=== PATIENT | male | born 1980 | race African-American/Black ===

== ENCOUNTER 2017-01-25 20:38 | Emergency (ER) | payer OTHER ==
[2017-01-25 20:51] VITALS: BP 116/72; PULSE 86; TEMP 98.3; BMI 32.3
--- NOTE | 2017-01-25 21:35 | PDOC ---
History of Present Illness - General Chief Complaint: Pain Stated Complaint: PAIN-BACK OF THE HEAD Time Seen by Provider: 01/25/17 21:10 History Source: Patient Exam Limitations: No Limitations - History of Present Illness Initial Comments: 01/25/17 21:59 36-year-old male with a chronic history of left-sided occipital headache 2 years presents to the emergency department with the same complaint. Patient states he was seen earlier at [facility] emergency department and had a CT of his head without contrast. He was informed that his CAT scan is fine. Patient states he's had numerous CAT scans of his brain without contrast and numerous MRI/MRA of his head over the past 2 years and most recently within the last month. Patient is under the care of a neurologist. Patient denies nausea/vomiting, fever/chills, neck pains, blurry vision, visual disturbance, chest pain, shortness of breath, abdominal pains, extremity numbness or tingling sensation. He claims his pain has not gone any worse and in fact a little better this evening. He denies any dizziness, lightheadedness. Patient adamantly declines any further imaging. Patient states he would like a referral to another neurologist. Timing/Duration: other (2 years) Associated Symptoms: reports: denies symptoms Past History - Past Medical History Allergies/Adverse Reactions: Allergies Allergy/AdvReac Type Severity Reaction Status Date / Time No Known Allergies Allergy Verified 01/25/17 20:47 Home Medications: Ambulatory Orders Ibuprofen [Motrin -] 600 mg PO QID #30 tablet 06/07/16 GI Disorders: Yes (Diverticulitis) Suicide Attempt (Hx): No - Surgical History Cholecystectomy: Yes - Immunization History Immunization Up to Date: Yes - Psycho/Social/Smoking Cessation Hx Anxiety: No Suicidal Ideation: No Smoking History: Never smoked Have you smoked in the past 12 months: No Number of Cigarettes Smoked Daily: 2 Information on smoking cessation initiated: No Hx Alcohol Use: No Drug/Substance Use Hx: No Substance Use Type: Marijuana Hx Substance Use Treatment: No Review of Systems - Review of Systems Able to Perform ROS?: Yes Comments:: 01/25/17 21:33 CONSTITUTIONAL: Absent: fever, chills, diaphoresis, generalized weakness, malaise, loss of appetite HEENT: Absent: rhinorrhea, nasal congestion, throat pain, throat swelling, difficulty swallowing, mouth swelling, ear pain, eye pain, visual Changes CARDIOVASCULAR: Absent: chest pain, loss of consciousness, palpitations, irregular heart rate, peripheral edema RESPIRATORY: Absent: cough, shortness of breath, dyspnea with exertion, orthopnea, wheezing, stridor, hemoptysis GASTROINTESTINAL: Absent: abdominal pain, abdominal distension, nausea, vomiting, diarrhea, constipation, melena, hematochezia GENITOURINARY: Absent: dysuria, frequency, urgency, hesitancy, hematuria, flank pain, genital pain MUSCULOSKELETAL: Absent: myalgia, arthralgia, joint swelling SKIN: Absent: rash, itching, pallor HEMATOLOGIC/IMMUNOLOGIC: Absent: easy bleeding, easy bruising, lymphadenopathy, frequent infections ENDOCRINE: Absent: unexplained weight gain, unexplained weight loss, heat intolerance, cold intolerance NEUROLOGIC: +left occipital carter Absent: focal weakness or paresthesias, dizziness, unsteady gait, seizure, mental status changes, bladder or bowel incontinence PSYCHIATRIC: Absent: anxiety, depression, suicidal or homicidal ideation, hallucinations. Is the patient limited Bahamian proficient: No *Physical Exam - Vital Signs Last Vital Signs Temp Pulse Resp BP Pulse Ox 98.3 F 86 18 116/72 97 01/25/17 20:48 01/25/17 20:48 01/25/17 20:48 01/25/17 20:48 01/25/17 20:48 - Physical Exam Comments: 01/25/17 21:57 GENERAL: Well developed, well nourished. Awake and alert. No acute distress. HEENT: Normocephalic, atraumatic. PERRLA, EOMI. No conjunctival pallor. Sclera are non- icteric. Moist mucous membranes. Oropharynx is clear. NECK: Supple. Full ROM. No JVD. Carotid pulses 2+ and symmetric, without bruits. No thyromegaly. No lymphadenopathy. CARDIOVASCULAR: Regular rate and rhythm. No murmurs, rubs, or gallops. Distal pulses are 2+ and symmetric. PULMONARY: No evidence of respiratory distress. Lungs clear to auscultation bilaterally. No wheezing, rales or rhonchi. ABDOMINAL: Soft. Non-tender. Non-distended. No rebound or guarding. No organomegaly. Normoactive bowel sounds. MUSCULOSKELETAL Normal range of motion at all joints. No bony deformities or tenderness. No CVA tenderness. EXTREMITIES: No cyanosis. No clubbing. No edema. No calf tenderness. SKIN: Warm and dry. Normal capillary refill. No rashes. No jaundice. NEUROLOGICAL: Alert, awake, appropriate. Cranial nerves 2-12 intact. No deficits to light touch and temperature in face, upper extremities and lower extremities. No motor deficits in the in face, upper extremities and lower extremities. Normoreflexic in the upper and lower extremities. Normal speech. Toes are down- going bilaterally. Gait is normal without ataxia. JSYCHIATRIC: Cooperative. Good eye contact. Appropriate mood and affect. *DC/Admit/Observation/Transfer Diagnosis at time of Disposition: Chronic head pain - Discharge Dispostion Condition at time of disposition: Stable Admit: No - Referrals Referrals: Stephanie Barrett MD [Primary Care Provider] - Alexander Michael MD [Staff Physician] - - Patient Instructions Printed Discharge Instructions: DI for Headache Additional Instructions: Follow up with Dr. Michael/neurologist Return to the ER for severe/persistent/worsening symptoms
== END 2017-01-25 22:04 | disposition home or self-care (01) ==
LOC: JER 20:38
DX: R51 Headache (principal); G89.29 Other chronic pain
CPT/HCPCS: 99281-25

== ENCOUNTER 2017-02-20 16:36 | Emergency (ER) | payer OTHER ==
[2017-02-20 16:48] VITALS: BP 138/71; PULSE 64; TEMP 98.2; BMI 32.5
[2017-02-20] MEDS ORDERED: KETOROLAC TROMETHAMINE 60 MG/2 ML VIAL ONE (17:42)
[2017-02-20] MEDS ORDERED: KETOROLAC TROMETHAMINE 60 MG/2 ML VIAL IM ONE (17:47)
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
== END 2017-02-20 18:31 | disposition home or self-care (01) ==
LOC: JERFT 16:36
PROC: 3E0233Z Introduction of Anti-inflammatory into Muscle, Percutaneous Approach (ICD-10-PCS; principal; 2017-02-20)
DX: S29.012A Strain of muscle and tendon of back wall of thorax, initial encounter (principal); S93.431A Sprain of tibiofibular ligament of right ankle, initial encounter; S83.8X1A Sprain of other specified parts of right knee, initial encounter; V78.1XXA Passenger on bus injured in noncollision transport accident in nontraffic accident, initial encounter; Y93.89 Activity, other specified; Y92.414 Local residential or business street as the place of occurrence of the external cause
CPT/HCPCS: 99281-25

== ENCOUNTER 2017-06-21 11:41 | Emergency (ER) | payer OTHER ==
[2017-06-21 12:02] VITALS: BP 106/70; PULSE 68; TEMP 98; BMI 35.9
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
== END 2017-06-21 13:39 | disposition home or self-care (01) ==
LOC: JERFT 11:41
DX: M25.561 Pain in right knee (principal); G89.29 Other chronic pain
CPT/HCPCS: 99281-25

== ENCOUNTER 2017-09-14 17:17 | Emergency (ER) | payer OTHER ==
--- NOTE | 2017-09-14 17:34 | PDOC ---
Rapid Medical Evaluation Time Seen by Provider: 09/14/17 17:28 Medical Evaluation: Allergies Allergy/AdvReac Type Severity Reaction Status Date / Time No Known Allergies Allergy Verified 06/21/17 11:54 I have performed a brief in-person evaluation of this patient. The patient presents with a chief complaint of: right knee pain x 2 days. The patient states he was seen at [facility] 2 days ago and had a knee xray - result was broken knee cap. The patient saw his Ortho doc today who referred him for MRI next week. The patient was sent here for ? pain medication. He states [facility] sent him rx for oxycodone and ibuprofen but he has not been able to pick it up. Pertinent physical exam findings: Swelling and pain with palpation to right knee I have ordered the following: nothing The patient will proceed to the ED for further evaluation. Discharge Disposition - Diagnosis Right knee pain Qualifiers: Chronicity: acute Qualified Code(s): M25.561 - Pain in right knee - Referrals - Patient Instructions - Post Discharge Activity
[2017-09-14 17:35] VITALS: BP 115/85; PULSE 108; TEMP 98.3; BMI 31.5
[2017-09-14] MEDS ORDERED: KETOROLAC TROMETHAMINE 60 MG/2 ML VIAL IM ONE (19:53)
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
== END 2017-09-14 20:13 | disposition home or self-care (01) ==
LOC: JERFT 17:17
PROC: 2W3QX1Z Immobilization of Right Lower Leg using Splint (ICD-10-PCS; principal; 2017-09-14)
DX: S82.001A Unspecified fracture of right patella, initial encounter for closed fracture (principal); X58.XXXA Exposure to other specified factors, initial encounter; Y93.89 Activity, other specified; Y92.9 Unspecified place or not applicable
CPT/HCPCS: 29515; 99281-25

== ENCOUNTER 2017-09-29 05:48 | Day surgery (SDC) | payer OTHER ==
[2017-09-26 09:30] VITALS: BMI 30.2
[2017-09-29] MEDS ORDERED: MIDAZOLAM HCL 2 MG/2 ML SINGLE DOSE VIAL ONE ×3 (06:47→07:05)
[2017-09-29] MEDS ORDERED: BUPIVACAINE HCL/PF (5 MG/ML) 30 ML VIAL IJ ONE (06:47)
[2017-09-29] MEDS ORDERED: DEXAMETHASONE SOD PHOSPHATE/PF 10 MG/ML SDV ONE (06:47)
[2017-09-29] MEDS ORDERED: LIDOCAINE HCL 1%, 10 MG/ML (20ML VIAL) ONE (07:01)
[2017-09-29] MEDS ORDERED: BUPIVACAINE HCL/PF 0.5% (5MG/ML) 10 ML VIAL ONE (07:01)
[2017-09-29] MEDS ORDERED: DESFLURANE GAS 240 ML BOTTLE IH ONE (07:01)
[2017-09-29] MEDS ORDERED: SEVOFLURANE 250 ML BTL ONE (07:01)
[2017-09-29] MEDS ORDERED: ceFAZolin SODIUM 1 GM VIAL ONE (07:04)
[2017-09-29] MEDS ORDERED: PHENYLEPHRINE HCL 10 MG/1 ML SINGLE DOSE VIAL ONE (07:04)
[2017-09-29] MEDS ORDERED: ONDANSETRON 4 MG/2 ML VIAL ONE (07:04)
[2017-09-29] MEDS ORDERED: SUCCINYLCHOLINE CHLORIDE 200 MG/10 ML VIAL ONE (07:05)
[2017-09-29] MEDS ORDERED: ePHEDrine SULFATE 50 MG/1 ML AMPULE ONE (07:05)
[2017-09-29] MEDS ORDERED: PROPOFOL 20 ML ONE ×6 (07:05)
[2017-09-29] MEDS ORDERED: ROPIVACAINE HCL 0.5% 30ML VIAL ONE (07:13)
[2017-09-29] MEDS ORDERED: GUM MASTIC/STORAX/MSAL/ALCOHOL 1 DRP DROPSBTL MC ONE (10:43)
[2017-09-29] MEDS ORDERED: ONDANSETRON 4 MG/2 ML VIAL IVPUSH PRN (11:12)
[2017-09-29] MEDS ORDERED: oxyCODONE HCL 5 MG TABLET PO PRN (11:12)
[2017-09-29] MEDS ORDERED: PROMETHAZINE HCL 25 MG/1 ML VIAL IVPUSH PRN (11:12)
[2017-09-29] MEDS ORDERED: LACTATED RINGERS SOLUTION 1,000 ML IV SCH (11:15)
--- NOTE | 2017-09-29 11:32 | OP ---
Operative Note - Note: Operative Date: 09/29/17 Pre-Operative Diagnosis: right patella fracture Operation: right patella open reduction internal fixation Implants: accutrak micro x2 / synthes 2.0mm cortical screw x1 / segovia and nephew qfix anchor 1.8mm Post-Operative Diagnosis: Same as Pre-op Surgeon: Joaquin Alfaro Anesthesiologist/TRANSFORMATION COACH: Joe Marrero Anesthesia: Spinal, Fractional Operative Report Dictated: Yes
--- NOTE | 2017-09-29 12:16 | OP ---
DATE OF OPERATION: 09/29/2017 PREOPERATIVE DIAGNOSIS: Right patellar fracture. POSTOPERATIVE DIAGNOSIS: Right patellar fracture. PROCEDURE: Right patella open reduction internal fixation. SURGEON: Joaquin Alfaro MD ANESTHESIA: Regional plus spinal. POSTOPERATIVE CONDITION: Stable. COMPLICATIONS: None. IMPLANTS: Acutrak Micro screws x2 and 2-0-mm cortical screw from the [employer] tray x2 as well as a Q-Fix 1.8-mm anchor from [employer]. TOURNIQUET TIME: 76 minutes. POSTOPERATIVE CONDITION: Stable. INDICATIONS: This is a pleasant gentleman who had been suffering from patellar instability. He had an instability event and then suffered a fracture as a result. Given the displacement of this fracture, it was recommended for operative fixation. We discussed the option of nonoperative care with residual displacement of the fracture. We discussed the operative management with open reduction internal fixation. I reviewed operative risks in detail including bleeding, infection, neurovascular injury, need for further surgery, postoperative pain and stiffness, nonunion, malunion, hardware failure, or cutout. We discussed the possibility of posttraumatic arthrosis given that this was an intra-articular fracture. I addressed with the patient that this surgery would be to stabilize the fracture in the kneecap. This type of fracture often results in stiffness to the knee and may result in improvement of his instability to the knee. If this is not the case, he may require further surgery to correct his patellar instability. Given his knee valgus, it may be that distal femoral osteotomy is the most appropriate stabilization technique if she should require further procedures. We discussed medical risks such as heart attack, stroke, DVT, PE, and . I addressed all of the patient's questions. He voiced understanding and elected to proceed. DESCRIPTION OF PROCEDURE: The patient was brought to the operating room after administration of regional block in the preoperative holding area. The right lower extremity was then prepped and draped in the usual sterile fashion. A preoperative dose of antibiotics was given, and the usual time-out procedure was performed. The knee was examined demonstrating symmetric valgus to both sides. He had clearly increased lateral patellar translation versus the contralateral. At this point, incision was planned out medially over the patella. Incision was carried down through skin to subcutaneous tissue. Blunt spreading was used to expose the fascia over the patella. This was then split in line with its fibers. The soft tissue was now elevated sharply off the medial border of the patella at the fracture site. The fracture site was identified demonstrating a high degree of comminution. There was one major displaced fragment, which involved an osteoarticular surface although did not progress through to the dorsal aspect of the patella. This appeared to be more of a shear-type injury. The fracture fragments were then better defined utilizing a curette as well as rongeur, and any loose debris was removed. The main fragment was mobilized in order to provide better reduction and then was reduced and held in place with a K-wire. After considering treatment options, considering the large amount of articular surface on the fragment with minimal cortical shell, it was felt that fixation through the articular surface would be necessary. Utilizing the Acutrak system, 2 K-wires were inserted, and 2 screws were drilled and then inserted in a standard fashion bearing the headless screws well below the cartilage surface. In order to secure and then buttress the more medial aspect of the fracture, a 2-0 screw was drilled, countersunk, and then inserted fixating the more medial portion of the fracture. At this point, the entire fragment was quite stable. There were some surrounding fragments, which were too small for fixation in the approximate 3 mm size. These were sitting in near anatomic alignment just by the soft tissue attachments. The wound was copiously irrigated at this point. The tourniquet was left down. Any bleeding was identified and treated with electrocautery. In order to provide a superb capsular repair and help stabilize the patella better, a capsular repair was necessary. It should be noted that prior to starting this, fluoroscopy was used to confirm both fracture reduction and hardware placement. Both were satisfactory. The Q-Fix anchor was now drilled and inserted in the midportion of the medial patellar surface. The sutures were then passed through the retinaculum securing down the MPFL tissue to help stabilize the knee. Then 0 Vicryl sutures were used to repair the remaining capsule and retinaculum on the more inferior surface. More subcutaneous tissue was approximated using 2-0 Vicryl. The skin was closed using running 3-0 nylon. Sterile dressings were placed. The patient was placed into a well-padded cylinder-type cast. He was transferred to the recovery room in stable condition. Janeth FRAZIER/[id number]
[2017-09-29 16:31] VITALS: BP 116/70; PULSE 64; TEMP 97.7
== END 2017-09-29 16:37 | disposition home or self-care (01) ==
LOC: FASU 05:48
PROVIDERS: ATTEND Orthopaedic Surgery Sports Medicine
PROC: 0QSD04Z Reposition Right Patella with Internal Fixation Device, Open Approach (ICD-10-PCS; principal; 2017-09-29 08:40)
DX: S82.001A Unspecified fracture of right patella, initial encounter for closed fracture (principal); X58.XXXA Exposure to other specified factors, initial encounter; Y93.9 Activity, unspecified; Y92.9 Unspecified place or not applicable
CPT/HCPCS: 73560-TC-RT-FY; 76001-TC-FY; 97116-GP

== ENCOUNTER 2017-09-30 14:09 | Emergency (ER) | payer OTHER ==
--- NOTE | 2017-09-30 14:32 | PDOC ---
Rapid Medical Evaluation Time Seen by Provider: 09/30/17 14:29 Medical Evaluation: Allergies Allergy/AdvReac Type Severity Reaction Status Date / Time No Known Allergies Allergy Verified 09/30/17 14:29 I have performed a brief in-person evaluation of this patient. The patient presents with a chief complaint of: cast on left leg too tight Pertinent physical exam findings: none I have ordered the following: none; patient's surgical PA is coming to take cast off The patient will proceed to the ED for further evaluation.
[2017-09-30 14:33] VITALS: BP 128/67; PULSE 80; TEMP 98.6; BMI 30.2
--- NOTE | 2017-09-30 14:49 | CONSULT ---
- Consultation REQUESTING PROVIDER: CONSULT REQUEST: We have been asked to surgically evaluate this patient for right knee pain. PCP: HISTORY OF PRESENT ILLNESS: The patient is a 37 yo male who was referred to the ER for right knee pain by Dr. Alfaro his surgeon. He is s/p right patella open reduction and repair of fracture under regional/spinal. The patient states that he hasn't taken any pain medications since his operation. He denies any numbness or tingling to his foot. The pain is mostly throbbing and over his knee. He has scripts for pain meds, muscle relaxants and blood thinners at home. PSHx: right patella fracture repair 09/29/17 Home Medications Medication Instructions Recorded Ibuprofen 800 mg PO DAILY 09/26/17 Allergies Allergy/AdvReac Type Severity Reaction Status Date / Time No Known Allergies Allergy Verified 09/30/17 14:29 REVIEW OF SYSTEMS: NEUROLOGIC: Absent: paresthesias PHYSICAL EXAM: GENERAL: Awake, alert, and fully oriented, in no acute distress. MUSCULOSKELETAL: Normal ROM at all joints. No bony deformities or tenderness. No CVA tenderness. RLE: 2+ pulses, warm, well-perfused. sensation intact 5/5 dorsi/plantar flexion. The cast was bivalved using the oscillating cast saw. Webril was moved aside to view the inc which was c/d/i, xeroform was applied over the wound and an esthela wrap was applied the length of the cast. Vital Signs Temperature 98.6 F 09/30/17 14:30 Pulse Rate 80 09/30/17 14:30 Respiratory Rate 18 09/30/17 14:30 Blood Pressure 128/67 09/30/17 14:30 O2 Sat by Pulse Oximetry (%) 100 09/30/17 14:30 Problem List - Problems (1) Patellar fracture Assessment/Plan: Educated the patient on leg elevation above the heart level, Ice as needed and keep the cast dry. Use your pain medications as prescribed and start you blood thinners, aspirin 81 mg bid x 4 weeks f/u with Dr. Alfaro in 10 days D/w with Dr. Alfaro Code(s): S82.009A - UNSP FRACTURE OF UNSP PATELLA, INIT FOR CLOS FX Qualifiers: Encounter type: initial encounter Fracture type: closed Fracture morphology: unspecified fracture morphology Fracture alignment: nondisplaced Laterality: right Qualified Code(s): S82.001A - Unspecified fracture of right patella, initial encounter for closed fracture Visit type - Case Type Case Type: ED Admission - Emergency Emergency Visit: No - New patient This patient is new to me today: Yes Date on this admission: 09/30/17
--- NOTE | 2017-09-30 15:22 | PDOC ---
Suture Removal/Wound Check HPI - History of Present Illness Chief Complaint: Pain Stated Complaint: RIGHT KNEE PAIN Time Seen by Provider: 09/30/17 14:29 History Source: Yes: Patient Exam Limitations: Yes: No Limitations Past History - Past Medical History Allergies/Adverse Reactions: Allergies Allergy/AdvReac Type Severity Reaction Status Date / Time No Known Allergies Allergy Verified 09/30/17 14:29 Anemia: No Asthma: No Cancer: No Cardiac Disorders: No CVA: No COPD: No CHF: No DVT: No Dementia: No Diabetes: No GI Disorders: Yes (Diverticulitis) Disorders: No HTN: No Hypercholesterolemia: No Liver Disease: No Seizures: No Thyroid Disease: No Other medical history: knee surgery by - Surgical History Abdominal Surgery: Yes Appendectomy: No Cardiac Surgery: No Cholecystectomy: Yes Lung Surgery: No Neurologic Surgery: No Orthopedic Surgery: No - Immunization History Immunization Up to Date: Yes - Suicide/Smoking/Psychosocial Hx Smoking History: Never smoked Have you smoked in the past 12 months: No Number of Cigarettes Smoked Daily: 2 Information on smoking cessation initiated: No Hx Alcohol Use: No Drug/Substance Use Hx: No Substance Use Type: None, Marijuana Hx Substance Use Treatment: No Suture Removal/Wound Check PE - Physical Exam Laceration/Wound Check Symptoms: reports: Pain Comments: 09/30/17 15:18 right knee with cast in place here to see Arpita HALE for cast check in the ER Location of Laceration/Wound: right: Knee *Review of Systems - Review of Systems Able to Perform ROS?: Yes Constitutional: No: Symptoms Reported HEENTM: No: Symptoms Reported Respiratory: No: Symptoms reported Cardiac (ROS): No: Symptoms Reported ABD/GI: No: Symptoms Reported : No: Symptoms Reported Musculoskeletal: Yes: Symptoms Reported Medical Decision Making - Medical Decision Making 09/30/17 15:19 cc: right leg cast in place s/p patella repair here to see the orthopedist for a cast check *DC/Admit/Observation/Transfer Diagnosis at time of Disposition: Sprain of right knee Qualifiers: Encounter type: initial encounter Involved ligament of knee: other ligament Qualified Code(s): S83.8X1A - Sprain of other specified parts of right knee, initial encounter - Discharge Dispostion Disposition: HOME Condition at time of disposition: Good - Referrals - Patient Instructions Additional Instructions: follow with the orthopedist as discussed in 10 days elevate and apply ice do not get the cast wet - Post Discharge Activity
== END 2017-09-30 15:48 | disposition home or self-care (01) ==
LOC: JERFT 14:09
PROC: 2W5MX2Z Removal of Cast on Left Lower Extremity (ICD-10-PCS; principal; 2017-09-30)
PROC: 2W3LX2Z Immobilization of Right Lower Extremity using Cast (ICD-10-PCS; 2017-09-30)
DX: S82.091D Other fracture of right patella, subsequent encounter for closed fracture with routine healing (principal); X58.XXXD Exposure to other specified factors, subsequent encounter
CPT/HCPCS: 29345; 29705; 99281-25

== ENCOUNTER 2018-02-10 16:20 | Emergency (ER) | payer OTHER ==
--- NOTE | 2018-02-10 16:35 | PDOC ---
Rapid Medical Evaluation Time Seen by Provider: 02/10/18 16:33 Medical Evaluation: Allergies Allergy/AdvReac Type Severity Reaction Status Date / Time latex Allergy Rash Verified 02/10/18 16:32 02/10/18 16:33 have performed a brief in-person evaluation of this patient. The patient presents with a chief complaint of: R ear oain and otorrhea x 4 days Pertinent physical exam findings:defer to FT provider I have ordered the following:none The patient will proceed to the ED for further evaluation Discharge Disposition - Diagnosis Ear pain, right - Referrals - Patient Instructions - Post Discharge Activity
[2018-02-10 16:36] VITALS: BP 140/90; PULSE 98; TEMP 98.2; BMI 29.7
--- NOTE | 2018-02-10 16:58 | PDOC ---
History of Present Illness - General Chief Complaint: Ear Problem Stated Complaint: EAR PAIN Time Seen by Provider: 02/10/18 16:33 History Source: Patient Exam Limitations: No Limitations - History of Present Illness Initial Comments: 02/10/18 17:26 c/o right ear fullness, clogged feeling. pt denies trauma. pt denies fever or any recent URI symptoms. Pt concerned about a bug being in the ear. Timing/Duration: other (2 days) Severity: mild Past History - Past Medical History Allergies/Adverse Reactions: Allergies Allergy/AdvReac Type Severity Reaction Status Date / Time latex Allergy Rash Verified 02/10/18 16:32 Home Medications: Ambulatory Orders NK [No Known Home Medication] 02/10/18 Anemia: No Asthma: No Cancer: No Cardiac Disorders: No CVA: No COPD: No CHF: No DVT: No Dementia: No Diabetes: No GI Disorders: Yes (Diverticulitis) Disorders: No HTN: No Hypercholesterolemia: No Liver Disease: No Seizures: No Thyroid Disease: No - Surgical History Abdominal Surgery: Yes Appendectomy: No Cardiac Surgery: No Cholecystectomy: Yes Lung Surgery: No Neurologic Surgery: No Orthopedic Surgery: No - Immunization History Immunization Up to Date: Yes - Suicide/Smoking/Psychosocial Hx Smoking History: Former smoker Have you smoked in the past 12 months: No Number of Cigarettes Smoked Daily: 2 Information on smoking cessation initiated: No Hx Alcohol Use: No Drug/Substance Use Hx: No Substance Use Type: None, Marijuana Hx Substance Use Treatment: No Review of Systems - Review of Systems Able to Perform ROS?: Yes Is the patient limited Cymro proficient: No Constitutional: No: Symptoms Reported *Physical Exam - Vital Signs Last Vital Signs Temp Pulse Resp BP Pulse Ox 98.2 F 98 H 19 140/90 97 02/10/18 16:32 02/10/18 16:32 02/10/18 16:32 02/10/18 16:32 02/10/18 16:32 - Physical Exam General Appearance: Yes: Nourished, Appropriately Dressed HEENT: positive: EOMI, CHECO, TMs Normal Neck: positive: Supple. negative: Tender Respiratory/Chest: positive: Lungs Clear, Normal Breath Sounds. 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 NML intact, Fully Oriented, Alert, Normal Mood/ Affect Medical Decision Making - Medical Decision Making 02/10/18 17:31 cc: right ear clogged sensation no drainage no recent URI symptoms ear is clear no evidence of infection or foreign body *DC/Admit/Observation/Transfer Diagnosis at time of Disposition: Ear pain, right - Discharge Dispostion Disposition: HOME Condition at time of disposition: Good - Referrals Referrals: Tono Costello MD [Primary Care Provider] - Anthony Gonzalez MD [Staff Physician] - - Patient Instructions Additional Instructions: please follow with the ENT doctor tuesday if your symptoms continue you have no sign of infection or foreign body in the ear today if symptoms change or worsen you can return to ER do not put anything in the ear and keep water out of ear during showering - Post Discharge Activity
--- NOTE | 2018-02-10 17:10 | PDOC ---
History of Present Illness - General Chief Complaint: Ear Problem Stated Complaint: EAR PAIN Time Seen by Provider: 02/10/18 16:33 History Source: Patient Exam Limitations: No Limitations Past History - Past Medical History Allergies/Adverse Reactions: Allergies Allergy/AdvReac Type Severity Reaction Status Date / Time latex Allergy Rash Verified 02/10/18 16:32 Home Medications: Ambulatory Orders Unobtainable 09/30/17 Anemia: No Asthma: No Cancer: No Cardiac Disorders: No CVA: No COPD: No CHF: No DVT: No Dementia: No Diabetes: No GI Disorders: Yes (Diverticulitis) Disorders: No HTN: No Hypercholesterolemia: No Liver Disease: No Seizures: No Thyroid Disease: No - Surgical History Abdominal Surgery: Yes Appendectomy: No Cardiac Surgery: No Cholecystectomy: Yes Lung Surgery: No Neurologic Surgery: No Orthopedic Surgery: No - Immunization History Immunization Up to Date: Yes - Suicide/Smoking/Psychosocial Hx Smoking History: Former smoker Have you smoked in the past 12 months: No Number of Cigarettes Smoked Daily: 2 Information on smoking cessation initiated: No Hx Alcohol Use: No Drug/Substance Use Hx: No Substance Use Type: None, Marijuana Hx Substance Use Treatment: No *Physical Exam - Vital Signs Last Vital Signs Temp Pulse Resp BP Pulse Ox 98.2 F 98 H 19 140/90 97 02/10/18 16:32 02/10/18 16:32 02/10/18 16:32 02/10/18 16:32 02/10/18 16:32 *DC/Admit/Observation/Transfer Diagnosis at time of Disposition: Ear pain, right - Referrals Referrals: Tono Costello MD [Primary Care Provider] - - Patient Instructions - Post Discharge Activity
== END 2018-02-10 17:35 | disposition home or self-care (01) ==
LOC: JERFT 16:20
DX: H92.01 Otalgia, right ear (principal)
CPT/HCPCS: 99281-25

== ENCOUNTER 2019-01-25 14:52 | Emergency (ER) | payer OTHER | END 2019-01-25 17:30 | disposition home or self-care (01) | LOC: JER 14:52 ==

== ENCOUNTER 2019-02-03 12:05 | Emergency (ER) | payer OTHER | END 2019-02-03 14:35 | disposition home or self-care (01) | LOC: JER 12:05 ==

== ENCOUNTER 2019-09-13 17:58 | Emergency (ER) | payer OTHER ==
--- NOTE | 2019-09-13 18:15 | PDOC ---
Rapid Medical Evaluation Time Seen by Provider: 09/13/19 18:11 Medical Evaluation: Allergies Allergy/AdvReac Type Severity Reaction Status Date / Time latex Allergy Rash Verified 02/20/18 14:31 09/13/19 18:13 CC: left middle finger pain PE: swelling to cuticle of left middle finger. + pus present. Orders: xray Patient will proceed to ED for further evaluation. Discharge Disposition - Diagnosis Paronychia - Referrals - Patient Instructions - Post Discharge Activity
[2019-09-13 18:16] VITALS: BP 114/87; PULSE 97; TEMP 98.2; BMI 32.5
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
[2019-09-13] MEDS ORDERED: IBUPROFEN 600 MG TABLET (FP) PO ONE ×2 (19:38→19:48)
== END 2019-09-13 19:53 | disposition home or self-care (01) ==
LOC: JERFT 17:58
PROC: 0J9K0ZZ Drainage of Left Hand Subcutaneous Tissue and Fascia, Open Approach (ICD-10-PCS; principal; 2019-09-13)
DX: L03.012 Cellulitis of left finger (principal)
CPT/HCPCS: 99281-25

== ENCOUNTER 2020-03-20 21:40 | Emergency (ER) | payer OTHER ==
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
[2020-03-20 21:53] VITALS: BP 129/85; PULSE 88; TEMP 99.1; BMI 28.0
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
== END 2020-03-20 22:55 | disposition home or self-care (01) ==
LOC: JER 21:40
DX: S82.892A Other fracture of left lower leg, initial encounter for closed fracture (principal)
CPT/HCPCS: 73610-TC-LT-FY; 99283-25

== ENCOUNTER 2020-05-13 22:34 | Emergency (ER) | payer OTHER ==
[2020-05-13 23:00] VITALS: TEMP 98.2; BMI 34.0
--- OUTSIDE RECORDS SUMMARY | 2020-05-13 23:05 | XMS ---
:1980 Author Organization [facility] Care Team Providers Name Role Phone GILDA BARNETT Unavailable Unavailable GARRATON, LYNN, LYNN Unavailable Unavailable Mutua, Mwia Faith Unavailable [phone] Mutua, Ford Unavailable [phone] MARIANELA BECERRA Unavailable Unavailable Osredkar Unavailable [phone] Ta Unavailable MILES SHAH Unavailable MILES SHAH Unavailable MILES SHAH Unavailable MILES SHAH Unavailable MILES SHAH Unavailable OYEKOLA KNOBBER Unavailable OYEKOLA KNOBBER Unavailable OYEKOLA KNOBBER Unavailable OYEKOLA KNOBBER Unavailable Sharlene Guadarrama MD Unavailable Unavailable Sharlene Guadarrama MD Unavailable Unavailable Sharlene Guadarrama MD Unavailable Unavailable Sharlene Guadarrama MD Unavailable Unavailable Sharlene Guadarrama MD Unavailable Unavailable Sharlene Guadarrama MD Unavailable Unavailable Go, R MD Unavailable Unavailable Mukesh Unavailable [phone] AGYEPONG KNOBBER Unavailable AGYEPONG KNOBBER Unavailable Go, R MD Unavailable Unavailable Go, R MD Unavailable Unavailable Go, R MD Unavailable Unavailable Go, R MD Unavailable Unavailable Go, R MD Unavailable Unavailable Go, R MD Unavailable Unavailable Go, R Unavailable Unavailable Nicola SHAH Unavailable Unavailable Nicola SHAH Unavailable Unavailable Nicola SHAH Unavailable Unavailable Hanson Unavailable Unavailable Hanson Unavailable Unavailable Hanson Unavailable Unavailable Hanson Unavailable Unavailable Hanson Unavailable Unavailable LEFKOVITZ, MACIEJ Unavailable Unavailable Luke Unavailable [phone] Luke Unavailable [phone] MD Aldo Unavailable Unavailable Lakhi Unavailable [phone] Lakhi Unavailable [phone] Lakhi Unavailable [phone] SHANE DDS Unavailable Aszalos, Shahnaz Unavailable Unavailable Aszalos, Shahnaz Unavailable Unavailable Aszalos, Shahnaz Unavailable Unavailable Aszalos, Shahnaz Unavailable Unavailable Aszalos, Shahnaz Unavailable Unavailable Aszalos, Shahnaz Unavailable Unavailable Aszalos, Shahnaz Unavailable Unavailable Aszalos, Shahnaz Unavailable Unavailable Aszalos, Shahnaz Unavailable Unavailable LEIDY LOMAX Unavailable Unavailable RAVANMEHR Unavailable RAVANMEHR Unavailable Garza Unavailable Héctor Unavailable [phone] MD Biju Unavailable Unavailable MD Biju Unavailable Unavailable MD Biju Unavailable Unavailable MD Biju Unavailable Unavailable MD Biju Unavailable Unavailable NIKIA MATTHEWS Unavailable Unavailable MD AKIL Unavailable MD AKIL Unavailable MD AKIL Unavailable Magalys SHAH Unavailable Unavailable RENEE KNOBBER Unavailable RENEE KNOBBER Unavailable JOSE D ABREU Unavailable Unavailable Rehana Unavailable [phone] Rehana Unavailable [phone] Rehana Unavailable [phone] Rehana Unavailable [phone] Rehana Unavailable [phone] Rehana Unavailable [phone] FERNIE CANDELARIA Unavailable Unavailable BRENDA CARBAJAL Unavailable Unavailable THOMAS LOMAX Unavailable Ruperto Unavailable [phone] EMERGENCY SERVICE, X Unavailable Unavailable GLADYS DPM Unavailable GLADYS DPM Unavailable Jon Unavailable Unavailable Jon Unavailable Unavailable SHAHZA DENT HY Unavailable Re-disclosure Warning The records that you are about to access may contain information from federally- assisted alcohol or drug abuse programs. If such information is present, then the following federally mandated warning applies: This information has been disclosed to you from records protected by federal confidentiality rules (42 CFR part 2). The federal rules prohibit you from making any further disclosure of this information unless further disclosure is expressly permitted by the written consent of the person to whom it pertains or as otherwise permitted by 42 CFR part 2. A general authorization for the release of medical or other information is NOT sufficient for this purpose. The Federal rules restrict any use of the information to criminally investigate or prosecute any alcohol or drug abuse patient.The records that you are about to access may contain highly sensitive health information, the redisclosure of which is protected by Article 27-F of the [facility] Public Health law. If you continue you may haveaccess to information: Regarding HIV / AIDS; Provided by facilities licensed or operated by the [facility] Office of Mental Health; or Provided by the [facility] Office for People With Developmental Disabilities. If such information is present, then the following [facility] mandated warning applies: This information has been disclosed to you from confidential records which are protected by state law. State law prohibits you from making any further disclosure of this information without the specific written consent of the person to whom it pertains, or as otherwise permitted by law. Any unauthorized further disclosure in violation of state law may result in a fine or nursing home sentence or both. A general authorization for the release of medical or other information is NOT sufficient authorization for further disclosure. Allergies and Adverse Reactions Type Description Substance Reaction Status Data Source(s ) Environmental latex latex [facility] Corpor[facility] on Drug allergy latex latex [facility] Corpor[facility] on Miscellaneous latex latex UNKNOWN [facility] Allergy to Active Latex Skin Rashes, Active VIBHA (Mo unt substance [facility]) Allergy to Active Latex Skin Rashes, Active VIBHA (Mo unt substance [facility]) Allergy to Active Latex Skin Rashes, Active VIBHA (Mo unt substance [facility]) Allergy to Active Latex Skin Rashes, Active VIBHA (Mo unt substance [facility]) Allergy to Active Latex Skin Rashes, Active VIBHA (Mo unt substance [facility]) Allergy to Active Latex Skin Rashes, Active VIBHA (Mo unt substance [facility]) Allergy to Active Latex Skin Rashes, Active VIBHA (Mo unt substance [facility]) Allergy to Active Latex Skin Rashes, Active VIBHA (Mo unt substance [facility]) Drug allergy No Known Drug No Known Drug [facility] Allergies Allergies Medical Center Propensity to Propensity to Propensity to NEXTG EN ([facility] adverse reactions adverse adverse [facility] (disorder) reactions reactions Center) (disorder) (disorder) Family History Family Member Family Member Family Member Date of Description Data Source(s) Name Gender Status Status Unknown Male Diagnosis 09/16/2014 NEXTGEN ([facility] 12:00:00 AM [facility] al EST [place]) Encounters Encounter Providers Location Date Indications Data Source(s ) Emergency Attender: BARTOLO 05/06/2020 PAIN LEFT OPAL [facility] 08[facility]00 PM [facility] EMERGENCY EDT Corporation SERVICE, XAdmitter: LEIDY LOMAX PAIN LEFT OPAL RASH Outpatient Attender: BYRON 04/03/2020 11:56:00 [facility]V [facility] NIKIAAttender: MANGION, AM EDT [facility] Care JEREMYAdmitter: Cecilia MATTHEWS Emergency Attender: LYNN 03/27/2020 CAST REMOVAL [facility], 09:55:00 AM EDT Health Ca re TEENAAttender: Corporatio n EMERGENCY SERVICE, XAdmitter: LYNN DRIVER CAST REMOVAL Emergency Attender: Benjamin 03/24/2020 08:59:00 BROKEN ANK LE [facility] Biju MDAttender: PM EDT [facility] EMERGENCY SERVICE, Corpor ation XAdmitter: Benjamin Ivy MDReferrer: EMERGENCY SERVICE, X BROKEN ANKLE Outpatient Attender: LOIS, 02/21/2020 08:43:00 [facility] VERONICAEMYAdmitter: LOIS, AM EDT [facility] Care JOSE D Negotiant Outpatient Attender: BYRON, 02/11/2020 10:02:00 S82.842 [facility] NIKIAAdmitter: ASPRINIO, AM [facility] DAVIDReferrer: ASPRINSchool Yourself NIIKA [id number] Outpatient Attender: BYRON, 02/11/2020 06:00:00 S82.842 [facility] NIKIAAdmitter: ASPMATT, AM [facility] DAVIDReferrer: [facility] NIKIA [id number] Outpatient Attender: BYRON 02/08/2020 [id number] [facility] NIKIAAdmitter: 10:06:00 AM EDT [id number] [facility] JOANNEHOLLAND HOSPITALSchool Yourself DAVIDReferrer: NIKIA MATTHEWS [id number] Outpatient Attender: BYRON, 02/08/2020 06:00:00 S82.842 [facility] NIKIAAdmitter: ASPMATT, AM [facility] NIKIAReferrer: FoxGuard SolutionsHOLLAND HOSPITALSchool Yourself NIKIA [id number] Outpatient Attender: BYRON, 02/04/2020 04:05:00 [id number] [facility] NIKIAAdmitter: PM EDT Health NUHA Montagueeferrer: NIKIA De La Rosa [id number] Emergency Attender: ERICKA, 03/28/2019 12:24:00 PAIN [facility] GILDAAdmitter: PM EDT Health GILDA 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[employer] PAIN Outpatient<td Attender: Dustin 03/27/2019 ObesityAbdominal MARYCARMEN LAURA ID="encounterTypeDescriptionID0">[place]</td><td>[facility] 12:15:00 PM PainHyperlipidemiaHydrarthrosis ([facility] KNOBBER</td><td>[facility] EDT - - Knee / Patella / Tibia / Neighborhood Center</td><td>03/27/2019</td><td><content [facility] Center 01/2019 [facility] ID="encounterDiagnosisID0-0">Hyperlipidemia</content>, 01:17:10 PM Center) <content ID="encounterDiagnosisID0-1">Abdominal EDT Pain</content>, <content ID="encounterDiagnosisID0-2">Obesity</content>, <content ID="encounterDiagnosisID0-3">Hydrarthrosis - Knee / Patella / Tibia / Fibula</content></td> Obesity Abdominal Pain Hyperlipidemia Hydrarthrosis - Knee / Patella / Tibia / Fibula Emergency H 03/25/2019 [facility] 06:09:00 PM Medical EDT Center Outpatient Attender: Dustin 03/23/2019 [place] <td [facility] 06:04:00 PM (Vijay Alonzo ID="[facility] EDT - [facility] 03/23/2019 Health criptionID 11:59:00 PM Center) 1">*OUTREA EDT CH*</td><t d>[facility]</td><t d>[facility]</td ><td>03/23</td> <td></td> Outpatient Attender: Dustin 03/21/2019 ObesityNeuropathyRoutine [place] <td [facility] 10:30:00 AM ExaminationObesityNeurop athyRout (Vijay Alonzo ID="[facility] EDT - [facility] 03/21/2019 ExaminationObesityNeuropa thyRout Health criptionID 11:50:43 AM [facility] Examination Center) 2">OFFICE EDT VISIT</td> <td>[facility]</td><t d>[facility]</td ><td>03/21</td> <td><say nt ID="encoun terDiagnos isID2-0">R outine Examinatio n</content >, <content ID="encoun terDiagnos isID2-1">N europathy< /content>, <content ID="encoun terDiagnos isID2-2">O besity</co ntent></td > Obesity Neuropathy Routine Examination Obesity Neuropathy Routine Examination Obesity Neuropathy Routine Examination Outpatient<td Attender: Dustin 03/05/2019 VIBHA ID="encounterTypeDescriptionID3">PATIENT [facility] 01:16: 00 PM ([place] [facility]</td><td>[facility] EDT - Ne [facility]</td><td>[facility] 2018 Health Center</td><td>03/05/2019</td><td></td> 11:59:0 0 PM Center) EDT Outpatient<td Attender: Dustin 02/23/2019 A VIBHA ID="encounterTypeDescriptionID4">WALKINS< [facility] 01:15 :00 PM b ([place] /td><td>[facility] EDT - d Ne [facility]</td><td>[facility] 02/23/2019 o Health Center</td><td>02/23/2019</td><td><[place]ten 02:04 :54 PM Center) t ID="encounterDiagnosisID4-0">Penis EDT i Disorders</content>, <content n ID="encounterDiagnosisID4-1">Abdominal a Pain</content>, <content l ID="encounterDiagnosisID4-2">Obesity</con P tent></td> a i n P e n i s D i s o r d e r s A b d o m i n a l P a i n P e n i s D i s o r d e r s A b d o m i n a l P a i n P e n i s D i s o r d e r s A b d o m i n a l P a i n P e n i s D i s o r d e r s A b d o m i n a l P a i n P e n i s D i s o r d e r s O b e s i t y O b e s i t y O b e s i t y O b e s i t y O b e s i t y Abdominal Pain Penis Disorders Abdominal Pain Penis Disorders Abdominal Pain Penis Disorders Abdominal Pain Penis Disorders Abdominal Pain Penis Disorders Obesity Obesity Obesity Obesity Obesity Outpatient<td Attender: Dustin 02/14/2019 VIBHA ID="encounterTypeDescriptionID5">*OUTREACH*</td><td>MELISSA [facility] 04:45:00 PM ([facility]</td><td>[facility]</td><td>02/14/2019</td><td></td> KNOBBER Center [address] [place] [address] 11:59:00 PM Center) EDT Outpatient 02/05/2019 [facility] 11:22:00 AM Medical EDT Center Outpatient Attender: 02/05/2019 [facility] Leon Guadarrama 09:33:00 AM Medical [facility] EDT Center : Leon Guadarrama MDReferrer : Leon Guadarrama MD OutpatientOFFICE/OUTPATIENT VISIT, EST Attender: General 02/06/20 19 KATHIA Guadarrama MD Surgery 09:33:00 AM ([facility] 02/05/2019 Medical 09:33:00 AM Center) EDT Outpatient 02/05/2019 [facility] 12:00:00 AM Medical EDT Center Emergency Attender: 02/04/2019 Arin BECERRA, 07:36:00 AM [facility] EDT S Care ter: Kayla Motley L E A N D S T O M A C H P A I N TESTICLE AND STOMACH PAIN Outpatient<td Attender: Dustin 01/30/2019 [place] ID="encounterTypeDescriptionID6">PATIENT [facility] 11:31: 00 AM ([place] [facility]</td><td>[facility] EDT - [facility]</td><td>[facility] 2018 Health Center</td><td>01/30/2019</td><td></td> 11:59:0 0 PM Center) EDT Outpatient<td Attender: Dustin 01/25/2019 A [place] ID="encounterTypeDescriptionID7">[facility] b (Vijay Alonzo /td><td>[facility] EDT - d [facility] K[facility]BBER</td><td>[facility] KNOBBER Center 01/25/2019 o Health Center</td><td>01/25/2019</td><td><conten 12:50 :53 PM [facility]) t ID="encounterDiagnosisID7-0">Abdominal EDT i Pain</content></td> n a l P a i n A b d o m i n a l P a i n A b d o m i n a l P a i n A b d o m i n a l P a i n A b d o m i n a l P a i n A b d o m i n a l P a i n A b d o m i n a l P a i n A b d o m i n a l P a i n Abdominal Pain Abdominal Pain Abdominal Pain Abdominal Pain Abdominal Pain Abdominal Pain Abdominal Pain Abdominal Pain Outpatient<td Attender: Dustin 01/25/2019 [place] ID="encounterTypeDescriptionID8">PATIENT [facility] 11:34: 00 AM ([place] [facility]</td><td>[facility] EDT - Ne [facility]</td><td>[facility] 2018 Health Center</td><td>01/25/2019</td><td></td> 11:59:0 0 PM Center) EDT Outpatient Attender: 01/23/2019 Disha CANDELARIA, 06:00:00 AM [facility] Care er: Cecilia CANDELARIA Emergency Attender: 01/19/2019 Karen LOMAX, 12:08:00 PM [facility] EDT O Care ter: Manny Menendez P A I N STOMACH PAIN Emergency Attender: RAVEN, 12/18/2018 [facility]AV[facility], 07:07:00 PM EDT [facility] PAIN IN STAB WOUNDS Outpatient<td Attender: Dustin 05/05/2018 [place] ID="encounterTypeDescriptionID9">*OUTREACH*</td><td>[facility] 04:30:00 PM ([facility]</td><td>[facility] DT - [facility] Center</td><td>05/05/2018</td><td></td> KNOBBER Center [facility] Health 11:59:00 PM Center) EDT Outpatient<td ID="[id number]">*No Attender: Dustin 05/02/2018 [place] Show*</td><td>Boogie Garza</td><td>[facility] 03:06:00 PM ([facility]</td><td>05/02/2018</td><td></td> [facility] EDT - Neighborhood Center 05/02/2018 Health 11:59:00 PM Center) EDT Outpatient<td ID="[id number]">PATIENT Attender : Dustin 04/20/2018 [facility]</td><td>Stephanie Ta</td><td>[facility] 03:48:00 PM ([facility]</td><td>04/20/2018</td><td></td> [facility] EDT - Neighborhood Center 04/20/2018 Health 11:59:00 PM Center) EDT Outpatient<td Attender: Dustin 04/20/2018 [place] ID="[id number]">WALKINS</td><td>[facility] 12:15:00 PM ([facility]</td><td>[facility] EDT - [facility]</td><td>04/20/2018</td><td></td> rt Center [address] [place] [address] 03:35:05 PM Center) EDT Emergency Attender: 04/19/2018 Julito Jaimes Hardik 09:18:00 AM Karen Carlson MD EDT - E 04/19/2018 E 10:51:00 AM I EDT N J U R Y A U T O KNEE INJURY AUTO Outpatient<td Attender: Dustin 04/04/2018 [place] ID="[id number]">[facility] 10: 00:00 AM (Vijay Alonzo INITIAL VISIT</td><td[facility]</td><td>[facility] 04/04/20 18 Health Center</td><td>04/04/2018</td><td></td> 12:01:4 7 PM Center) EDT Outpatient<td Attender: Dustin 03/30/2018 [facility] ID="[id number]">[place]ALKINS</t [facility] 04 :15:00 PM y (Vijay Alonzo d><td>[facility]</td><td>[facility] EDT [facility] KNOBBER Center 03/30/2018 e Health Center</td><td>03/30/2018</td><td><content 04:5 5:20 PM r Center) ID="yimsfqotoYhhrsqqyyPM32-4">Hyperlipidemia ED T l </content></td> i p i d e m i a H y p e r l i p i d e m i a H y p e r l i p i d e m i a H y p e r l i p i d e m i a H y p e r l i p i d e m i a H y p e r l i p i d e m i a H y p e r l i p i d e m i a H y p e r l i p i d e m i a Hyperlipidemia Hyperlipidemia Hyperlipidemia Hyperlipidemia Hyperlipidemia Hyperlipidemia Hyperlipidemia Hyperlipidemia Outpatient<td Attender: Dustin 03/30/2018 VIBHA ID="[id number]">PATIENT [facility] 12:24 :00 PM (Vijay Alonzo ADVOCACY</td><td>[facility] EDT - [facility]</td><td>[facility] 2017 Health Center</td><td>03/30/2018</td><td></td> 11:59:0 0 PM Center) EDT Outpatient<td Attender: Dustin 03/27/2018 VIBHA ID="[id number]">[facility] 04:4 3:00 PM (Vijay Alonzo H*</td><td>[facility] EDT - [facility] KNOBBER</td><[facility]</td><td>03/27/2018</td><td></td> 11:59:0 0 PM Center) EDT Outpatient<td Attender: Dustin 03/24/2018 A VIBHA ID="[id number]">COMPLETE [facility] 10:0 0:00 AM b (Vijay Alonzo PHYSICAL EXAM</td><td>[facility] EDT - d [facility] KNOBBER</td><td>[facility] KNOBBER Center 03/24/2018 o Health Center</td><td>03/24/2018</td><td><content 12:0 0:15 PM Center) ID="fecttpkvbVrgxpztfcVS63-5">Questionnair EDT i es Phq-9 Quick Depression Assessment n Panel</content>, <content a ID="ejljhdscaMixvgqlkpMY25-3">Preventive l Med Standardized Depression Screening: P Positive For Symptoms</content>, <content a ID="gkllhciurPfmtmufkuTQ10-2">Depression</ i content>, <content n ID="diquqzurvRvmmjhusmOH03-5">Arthralgia - D Knee / Patella / Tibia / Fibula</content>, e <content r ID="widecufwdKbzpibwdrME15-6">Routine m History and Physical</content>, <content a ID="thomqkqctQqisurqrrZP57-1">Hearing t Loss</content>, <content o ID="vkceiktciPizagclzgLP72-2">Hypertrophic l Skin Condition</content>, <content o ID="ilcwzscqrBrjmxjgfmKZ72-5">Obesity</con g tent>, <content y ID="ywgvepfiiNishbyizyJA10-6">Dermatology N Non-infectious Nails</content>, <content o ID="zwtajfdqjUhstnujvwXM07-4">Abdominal n Pain</content></td> - i n f e c t i o u s N a i l s O b e s i t y H y p e r t r o p h i c S k i n C o n d i t i o n H e a r i n g L o s s R o u t i n e H i s t o r y a n d P h y s i c a l A r t h r a l g i a - K n e e / P a t e l l a / T i b i a / F i b u l a D e p r e s s i o n A b d o m i n a l P a i n D e r m a t o l o g y N o n - i n f e c t i o u s N a i l s O b e s i t y H y p e r t r o p h i c S k i n C o n d i t i o n H e a r i n g L o s s R o u t i n e H i s t o r y a n d P h y s i c a l A r t h r a l g i a - K n e e / P a t e l l a / T i b i a / F i b u l a D e p r e s s i o n A b d o m i n a l P a i n D e r m a t o l o g y N o n - i n f e c t i o u s N a i l s O b e s i t y H y p e r t r o p h i c S k i n C o n d i t i o n H e a r i n g L o s s R o u t i n e H i s t o r y a n d P h y s i c a l A r t h r a l g i a - K n e e / P a t e l l a / T i b i a / F i b u l a D e p r e s s i o n A b d o m i n a l P a i n D e r m a t o l o g y N o n - i n f e c t i o u s N a i l s O b e s i t y H y p e r t r o p h i c S k i n C o n d i t i o n H e a r i n g L o s s R o u t i n e H i s t o r y a n d P h y s i c a l A r t h r a l g i a - K n e e / P a t e l l a / T i b i a / F i b u l a D e p r e s s i o n A b d o m i n a l P a i n D e r m a t o l o g y N o n - i n f e c t i o u s N a i l s O b e s i t y H y p e r t r o p h i c S k i n C o n d i t i o n H e a r i n g L o s s R o u t i n e H i s t o r y a n d P h y s i c a l A r t h r a l g i a - K n e e / P a t e l l a / T i b i a / F i b u l a D e p r e s s i o n A b d o m i n a l P a i n D e r m a t o l o g y N o n - i n f e c t i o u s N a i l s O b e s i t y H y p e r t r o p h i c S k i n C o n d i t i o n H e a r i n g L o s s R o u t i n e H i s t o r y a n d P h y s i c a l A r t h r a l g i a - K n e e / P a t e l l a / T i b i a / F i b u l a D e p r e s s i o n A b d o m i n a l P a i n D e r m a t o l o g y N o n - i n f e c t i o u s N a i l s O b e s i t y H y p e r t r o p h i c S k i n C o n d i t i o n H e a r i n g L o s s R o u t i n e H i s t o r y a n d P h y s i c a l A r t h r a l g i a - K n e e / P a t e l l a / T i b i a / F i b u l a D e p r e s s i o n A b d o m i n a l P a i n D e r m a t o l o g y N o n - i n f e c t i o u s N a i l s O b e s i t y H y p e r t r o p h i c S k i n C o n d i t i o n H e a r i n g L o s s R o u t i n e H i s t o r y a n d P h y s i c a l A r t h r a l g i a - K n e e / P a t e l l a / T i b i a / F i b u l a D e p r e s s i o n P r e v e n t i v e M e d S t a n d a r d i z e d D e p r e s s i o n S c r e e n i n g : P o s i t i v e F o r S y m p t o m s Q u e s t i o n n a i r e s P h q - 9 Q u i c k D e p r e s s i o n A s s e s s m e n t P a n e l P r e v e n t i v e M e d S t a n d a r d i z e d D e p r e s s i o n S c r e e n i n g : P o s i t i v e F o r S y m p t o m s Q u e s t i o n n a i r e s P h q - 9 Q u i c k D e p r e s s i o n A s s e s s m e n t P a n e l P r e v e n t i v e M e d S t a n d a r d i z e d D e p r e s s i o n S c r e e n i n g : P o s i t i v e F o r S y m p t o m s Q u e s t i o n n a i r e s P h q - 9 Q u i c k D e p r e s s i o n A s s e s s m e n t P a n e l P r e v e n t i v e M e d S t a n d a r d i z e d D e p r e s s i o n S c r e e n i n g : P o s i t i v e F o r S y m p t o m s Q u e s t i o n n a i r e s P h q - 9 Q u i c k D e p r e s s i o n A s s e s s m e n t P a n e l P r e v e n t i v e M e d S t a n d a r d i z e d D e p r e s s i o n S c r e e n i n g : P o s i t i v e F o r S y m p t o m s Q u e s t i o n n a i r e s P h q - 9 Q u i c k D e p r e s s i o n A s s e s s m e n t P a n e l P r e v e n t i v e M e d S t a n d a r d i z e d D e p r e s s i o n S c r e e n i n g : P o s i t i v e F o r S y m p t o m s Q u e s t i o n n a i r e s P h q - 9 Q u i c k D e p r e s s i o n A s s e s s m e n t P a n e l P r e v e n t i v e M e d S t a n d a r d i z e d D e p r e s s i o n S c r e e n i n g : P o s i t i v e F o r S y m p t o m s Q u e s t i o n n a i r e s P h q - 9 Q u i c k D e p r e s s i o n A s s e s s m e n t P a n e l P r e v e n t i v e M e d S t a n d a r d i z e d D e p r e s s i o n S c r e e n i n g : P o s i t i v e F o r S y m p t o m s Q u e s t i o n n a i r e s P h q - 9 Q u i c k D e p r e s s i o n A s s e s s m e n t P a n e l Abdominal Pain Dermatology Non-infectious Nails Obesity Hypertrophic Skin Condition Hearing Loss Routine History and Physical Arthralgia - Knee / Patella / Tibia / Fi bula Depression Abdominal Pain Dermatology Non-infectious Nails Obesity Hypertrophic Skin Condition Hearing Loss Routine History and Physical Arthralgia - Knee / Patella / Tibia / Fi bula Depression Abdominal Pain Dermatology Non-infectious Nails Obesity Hypertrophic Skin Condition Hearing Loss Routine History and Physical Arthralgia - Knee / Patella / Tibia / Fi bula Depression Abdominal Pain Dermatology Non-infectious Nails Obesity Hypertrophic Skin Condition Hearing Loss Routine History and Physical Arthralgia - Knee / Patella / Tibia / Fi bula Depression Abdominal Pain Dermatology Non-infectious Nails Obesity Hypertrophic Skin Condition Hearing Loss Routine History and Physical Arthralgia - Knee / Patella / Tibia / Fi bula Depression Abdominal Pain Dermatology Non-infectious Nails Obesity Hypertrophic Skin Condition Hearing Loss Routine History and Physical Arthralgia - Knee / Patella / Tibia / Fi bula Depression Abdominal Pain Dermatology Non-infectious Nails Obesity Hypertrophic Skin Condition Hearing Loss Routine History and Physical Arthralgia - Knee / Patella / Tibia / Fi bula Depression Abdominal Pain Dermatology Non-infectious Nails Obesity Hypertrophic Skin Condition Hearing Loss Routine History and Physical Arthralgia - Knee / Patella / Tibia / Fi bula Depression Preventive Med Standardized Depression S creening: Positive For Symptoms Questionnaires Phq-9 Quick Depression As sessment Panel Preventive Med Standardized Depression S creening: Positive For Symptoms Questionnaires Phq-9 Quick Depression As sessment Panel Preventive Med Standardized Depression S creening: Positive For Symptoms Questionnaires Phq-9 Quick Depression As sessment Panel Preventive Med Standardized Depression S creening: Positive For Symptoms Questionnaires Phq-9 Quick Depression As sessment Panel Preventive Med Standardized Depression S creening: Positive For Symptoms Questionnaires Phq-9 Quick Depression As sessment Panel Preventive Med Standardized Depression S creening: Positive For Symptoms Questionnaires Phq-9 Quick Depression As sessment Panel Preventive Med Standardized Depression S creening: Positive For Symptoms Questionnaires Phq-9 Quick Depression As sessment Panel Preventive Med Standardized Depression S creening: Positive For Symptoms Questionnaires Phq-9 Quick Depression As sessment Panel Outpatient<td Attender: Dustin 03/07/2018 VIBHA ID="[id number]">DENTALVISIT</td><td>KYLE ZOIL A [facility] 05:00:00 PM ([facility] DENT HY</td><td>[facility] EDT - Neighborhood Center</td><td>03/07/2018</td><td></td> DENT HY Center 018 Health 11:59:00 PM Center) EDT Outpatient<td ID="[id number]">*No Attender: Dustin 02/04/2018 VIBHA Show*</td><td>BRAYDEN AQUINO MD</td><td>[facility] 12:55:00 PM ([facility]</td><td>02/04/2018</td><td></td> [facility] EDT - Neighborhood [place] [facility] 02/04/2018 Health 11:59:00 PM [place]) EDT Outpatient<td ID="[id number]">*No Attender: Dustin 01/14/2018 VIBHA Show*</td><td>BRAYDEN AQUINO MD</td><td>[facility] 12:34:00 PM ([facility]</td><td>01/14/2018</td><td></td> [facility] EDT - [facility] 01/14/2018 Health 11:59:00 PM Center) EDT Outpatient<td ID="[id number]">DENTAL Attender: Dustin 01/13/2018 VIBHA RE-CALL VISIT</td><td>ROBERT GUZMAN DDS</td><td>[facility] 01:30:00 PM ([facility]</td><td>01/13/2018</td><td></td> THOMAS DDS [facility] EDT - [facility] 01/13/2018 Health 11:59:00 PM Center) EDT Outpatient<td Attender: Dustin 11/19/2017 [place] ID="[id number]">WALKINS</td><td>[facility] v ([place] [facility] </td><td>[facility] ED T - e [facility]</td><td>11/19/2017</td><td><content MD Center 10/22 r Health ID="[id number]">Arthropathy Knee / Patella / 12:39:52 PM w Center) Tibia / Fibula</content>, <content EDT e ID="[id number]">Herniated Intervertebral i Disc</content>, <content g ID="[id number]">Overweight</content></td> h t O v e r w e i g h t O v e r w e i g h t O v e r w e i g h t O v e r w e i g h t O v e r w e i g h t O v e r w e i g h t O v e r w e i g h t H e r n i a t e d I n t e r v e r t e b r a l D i s c A r t h r o p a t h y K n e e / P a t e l l a / T i b i a / F i b u l a H e r n i a t e d I n t e r v e r t e b r a l D i s c A r t h r o p a t h y K n e e / P a t e l l a / T i b i a / F i b u l a H e r n i a t e d I n t e r v e r t e b r a l D i s c A r t h r o p a t h y K n e e / P a t e l l a / T i b i a / F i b u l a H e r n i a t e d I n t e r v e r t e b r a l D i s c A r t h r o p a t h y K n e e / P a t e l l a / T i b i a / F i b u l a H e r n i a t e d I n t e r v e r t e b r a l D i s c A r t h r o p a t h y K n e e / P a t e l l a / T i b i a / F i b u l a H e r n i a t e d I n t e r v e r t e b r a l D i s c A r t h r o p a t h y K n e e / P a t e l l a / T i b i a / F i b u l a H e r n i a t e d I n t e r v e r t e b r a l D i s c A r t h r o p a t h y K n e e / P a t e l l a / T i b i a / F i b u l a H e r n i a t e d I n t e r v e r t e b r a l D i s c A r t h r o p a t h y K n e e / P a t e l l a / T i b i a / F i b u l a Overweight Overweight Overweight Overweight Overweight Overweight Overweight Overweight Herniated Intervertebral Disc Arthropathy Knee / Patella / Tibia / Fib arnulfo Herniated Intervertebral Disc Arthropathy Knee / Patella / Tibia / Fib arnulfo Herniated Intervertebral Disc Arthropathy Knee / Patella / Tibia / Fib arnulfo Herniated Intervertebral Disc Arthropathy Knee / Patella / Tibia / Fib arnulfo Herniated Intervertebral Disc Arthropathy Knee / Patella / Tibia / Fib arnulfo Herniated Intervertebral Disc Arthropathy Knee / Patella / Tibia / Fib arnulfo Herniated Intervertebral Disc Arthropathy Knee / Patella / Tibia / Fib arnulfo Herniated Intervertebral Disc Arthropathy Knee / Patella / Tibia / Fib arnulfo Outpatient<td Attender: Dustin 06/14/2017 [place] ID="[id number]">DENTALVISIT</td><td>KYLE ROMERO A [facility] 07:00:00 PM ([facility] DENT HY</td><td>[facility] EDT - Neighborhood Center</td><td>06/14/2017</td><td></td> DENT HY Center [facility] 11:59:00 PM Center) EDT Outpatient<td ID="[id number]">OFFICE Attender: Dustin 05/26/2017 [place] VISIT</td><td>BENNETT BARNARD MD</td><td>[facility] 01:30:00 PM b ([facility]</td><td>05/26/2017</td><td><bill BARNARD MD Health EDT - e Neighborhood ID="[id number]">Obesity</content></td> Cente r 05/26/2017 s Health 04:01:30 PM i [place]) EDT t y O b e s i t y O b e s i t y O b e s i t y O b e s i t y O b e s i t y O b e s i t y O b e s i t y Obesity Obesity Obesity Obesity Obesity Obesity Obesity Obesity Outpatient<td Attender: Dustin 05/23/2017 [place] ID="[id number]">DENTAL [facility] 01:00: 00 PM ([place] INITIAL VISIT</td><td>MEGAN LYNN S Health EDT - Neighborhood DDS</td><td>[facility] 05/23/2017 Health Center</td><td>05/23/2017</td><td></td> 11:59:0 0 PM Center) EDT Outpatient<td Attender: Dustin 05/18/2017 Manny DUNNE ID="[id number]">OFFICE [facility] 04:00: 00 PM s ([place] VISIT</td><td>[facility] Health EDT - s Neighborhood DP</td><td>[facility] 05/18/2017 e Health Center</td><td>05/18/2017</td><td><conten 04:47 :32 PM s Center) t EDT s ID="[id number]">Assessment m [use For S.o.a.p. Note Free e Text]</content></td> n t [ u s e F o r S . o . a . p . N o t e F r e e T e x t ] A s s e s s m e n t [ u s e F o r S . o . a . p . N o t e F r e e T e x t ] A s s e s s m e n t [ u s e F o r S . o . a . p . N o t e F r e e T e x t ] A s s e s s m e n t [ u s e F o r S . o . a . p . N o t e F r e e T e x t ] A s s e s s m e n t [ u s e F o r S . o . a . p . N o t e F r e e T e x t ] A s s e s s m e n t [ u s e F o r S . o . a . p . N o t e F r e e T e x t ] A s s e s s m e n t [ u s e F o r S . o . a . p . N o t e F r e e T e x t ] A s s e s s m e n t [ u s e F o r S . o . a . p . N o t e F r e e T e x t ] Assessment [use For S.o.a.p. Note Free T ext] Assessment [use For S.o.a.p. Note Free T ext] Assessment [use For S.o.a.p. Note Free T ext] Assessment [use For S.o.a.p. Note Free T ext] Assessment [use For S.o.a.p. Note Free T ext] Assessment [use For S.o.a.p. Note Free T ext] Assessment [use For S.o.a.p. Note Free T ext] Assessment [use For S.o.a.p. Note Free T ext] Outpatient<td Attender: Dustin 05/12/2017 Questionnaires Phq-9 [facility] ID="[id number]">[facility] 01:15:00 PM Quick Depression ([place] PHYSICAL EXAM</td><td>[facility] EDT - Assessment Neighborhood KNOBBER</td><td>[facility] KNOBBER Center 05/12/2017 PanelPreventive Med Health Center</td><td>05/12/2017</td><td><content 02:42:43 PM Standardized Depression Center) ID="[id number]">Routine History E DT Screening: Negative For and Physical</content>, <content Sym ptomsQuestionnaires ID="[id number]">Arthralgia - Phq-9 Quick Depression Knee / Patella / Tibia / Fibula</content>, Assessment <content PanelPreventive Med ID="[id number]">Arthralgia - Standardized Depression Ankle / Foot</content>, <content Scr eening: Negative For ID="[id number]">Preventive Med SymptomsQuestionnaires Standardized Depression Screening: Negative Phq-9 Quick Depression For Symptoms</content>, <content Ass essment ID="[id number]">Questionnaires PanelPreventive Med Phq-9 Quick Depression Assessment St andardized Depression Panel</content></td> Screening: Nega tive For SymptomsQuestionnaires Phq-9 Quick Depression Assessment PanelPreventive Med Standardized Depression Screening: Negative For SymptomsQuestionnaires Phq-9 Quick Depression Assessment PanelPreventive Med Standardized Depression Screening: Negative For SymptomsQuestionnaires Phq-9 Quick Depression Assessment PanelPreventive Med Standardized Depression Screening: Negative For SymptomsQuestionnaires Phq-9 Quick Depression Assessment PanelPreventive Med Standardized Depression Screening: Negative For SymptomsQuestionnaires Phq-9 Quick Depression Assessment PanelPreventive Med Standardized Depression Screening: Negative For SymptomsArthralgia - Ankle / FootArthralgia - Knee / Patella / Tibia / FibulaRoutine History and PhysicalArthralgia - Ankle / FootArthralgia - Knee / Patella / Tibia / FibulaRoutine History and PhysicalArthralgia - Ankle / FootArthralgia - Knee / Patella / Tibia / FibulaRoutine History and PhysicalArthralgia - Ankle / FootArthralgia - Knee / Patella / Tibia / FibulaRoutine History and PhysicalArthralgia - Ankle / FootArthralgia - Knee / Patella / Tibia / FibulaRoutine History and PhysicalArthralgia - Ankle / FootArthralgia - Knee / Patella / Tibia / FibulaRoutine History and PhysicalArthralgia - Ankle / FootArthralgia - Knee / Patella / Tibia / FibulaRoutine History and PhysicalArthralgia - Ankle / FootArthralgia - Knee / Patella / Tibia / FibulaRoutine History and Physical Questionnaires Phq-9 Quick Depression As sessment Panel Preventive Med Standardized Depression S creening: Negative For Symptoms Questionnaires Phq-9 Quick Depression As sessment Panel Preventive Med Standardized Depression S creening: Negative For Symptoms Questionnaires Phq-9 Quick Depression As sessment Panel Preventive Med Standardized Depression S creening: Negative For Symptoms Questionnaires Phq-9 Quick Depression As sessment Panel Preventive Med Standardized Depression S creening: Negative For Symptoms Questionnaires Phq-9 Quick Depression As sessment Panel Preventive Med Standardized Depression S creening: Negative For Symptoms Questionnaires Phq-9 Quick Depression As sessment Panel Preventive Med Standardized Depression S creening: Negative For Symptoms Questionnaires Phq-9 Quick Depression As sessment Panel Preventive Med Standardized Depression S creening: Negative For Symptoms Questionnaires Phq-9 Quick Depression As sessment Panel Preventive Med Standardized Depression S creening: Negative For Symptoms Arthralgia - Ankle / Foot Arthralgia - Knee / Patella / Tibia / Fi bula Routine History and Physical Arthralgia - Ankle / Foot Arthralgia - Knee / Patella / Tibia / Fi bula Routine History and Physical Arthralgia - Ankle / Foot Arthralgia - Knee / Patella / Tibia / Fi bula Routine History and Physical Arthralgia - Ankle / Foot Arthralgia - Knee / Patella / Tibia / Fi bula Routine History and Physical Arthralgia - Ankle / Foot Arthralgia - Knee / Patella / Tibia / Fi bula Routine History and Physical Arthralgia - Ankle / Foot Arthralgia - Knee / Patella / Tibia / Fi bula Routine History and Physical Arthralgia - Ankle / Foot Arthralgia - Knee / Patella / Tibia / Fi bula Routine History and Physical Arthralgia - Ankle / Foot Arthralgia - Knee / Patella / Tibia / Fi bula Routine History and Physical [facility]: [facility] 04/21/2017 05:11:00 PM NEXTGEN ([facility] EDT - 04/21/2017 [facility] 05:11:00 PM EDT Center) Att[facility]: [facility] 03/23/2017 05:32:00 PM NEXTGEN ([facility] EDT - 03/23/2017 [facility] 05:32:00 PM EDT Center) [facility] 01/18/2017 10:42:00 AM NEXTGEN ([facility] EDT - 01/18/2017 [facility] 10:42:00 AM EDT Center) Attender: [facility] 01/11/2017 05:59:00 PM NEXTGEN ([facility] EDT - 01/11/2017 [facility] 05:59:00 PM EDT Center) Attender: [facility] 01/10/2017 10:39:00 AM NEXTGEN ([facility] EDT - 01/10/2017 [facility] 10:39:00 AM EDT Center) Attender: [facility] 10/28/2016 10:06:00 AM NEXTGEN ([facility] EST - 10/28/2016 [facility] 10:06:00 AM EST Center) Attender: [facility] 09/14/2016 04:59:00 PM NEXTGEN ([facility] EST - 09/14/2016 [facility] 04:59:00 PM EST Center) Attender: [facility] 05/31/2016 10:33:00 AM NEXTGEN ([facility] EDT - 05/31/2016 [facility] Medical 10:33:00 AM EDT Center) Attender: [facility] 02/13/2016 11:09:00 A M NEXTGEN ([facility] EDT - 02/13/2016 [facility] 11:09:00 AM EDT Center) Attender: [facility] 10/16/2015 08:55:00 AM NEXTGEN ([facility] EST - 10/16/2015 [facility] Medical 08:55:00 AM EST Center) Attender: [facility] 09/09/2015 08:45:00 AM NEXTGEN ([facility] EST - 09/09/2015 [facility] Medical 08:45:00 AM EST Center) Attender: [facility] 08/25/2015 10:20:00 AM NEXTGEN ([facility] EST - 08/25/2015 [facility] Medical 10:20:00 AM EST Center) Attender: Dany [facility] 07/25/2015 10:55:00 AM NEXTGEN ([facility] EST - 07/25/2015 [facility] Medical 10:55:00 AM EST Center) Att[facility]: [facility] 07/01/2015 08:52:00 AM NEXTGEN ([facility] EST - 07/01/2015 [facility] Medical 08:52:00 AM EST Center) Attender: [facility] 06/25/2015 12:22:00 P M NEXTGEN ([facility] EST - 06/25/2015 [facility] Medical 12:22:00 PM EST Center) Attender: [facility] 06/24/2015 10:44:00 AM NEXTGEN ([facility] EST - 06/24/2015 [facility] Medical 10:44:00 AM EST Center) Attender: [facility] 06/05/2015 03:11:00 P M NEXTGEN ([facility] EDT - 06/05/2015 [facility] Medical 03:11:00 PM EDT Center) Attender: Dany [facility] 02/11/2015 09:57:00 AM NEXTGEN ([facility] EDT - 02/11/2015 [facility] Medical 09:57:00 AM EDT Center) Attender: [facility] 01/09/2015 09:33:00 AM NEXTGEN ([facility] EDT - 01/09/2015 [facility] 09:33:00 AM EDT Center) Attender: [facility] 09/16/2014 03:17:00 P M NEXTGEN ([facility] EST - 09/16/2014 [facility] 03:17:00 PM EST Center) Attender: [facility] 08/06/2014 05:25:00 PM NEXTGEN ([facility] EST - 08/06/2014 [facility] 05:25:00 PM EST Center) Attender: [facility] 07/19/2014 09:46:00 A M NEXTGEN ([facility] EST - 07/19/2014 [facility] 09:46:00 AM EST Center) Attender: [facility] 07/15/2014 09:20:00 AM NEXTGEN ([facility] EST - 07/15/2014 [facility] 09:20:00 AM EST Center) Immunizations Vaccine Date Status Description Data Source(s) Note that this vaccine 08/24/2018 completed [facility] Medical name has changed. See 05:36:00 PM EST Ce nter also Td (adult). It is not adsorbed. Tdap 07/15/2014 completed Tdap [facility] ([facility] 12:00:00 AM EST Medical Cent er) Source: New Immunization Record Medications Medication Brand Start Product Dose Route Administrative Pharmacy [facility] Indications Reaction Description Data Name Date Form Instructions Instructions Source(s) Tylenol Tyleno UNK active Tylenol We stcheste (Acetaminop l 2020 mg (Acetaminoph [facility] [place] [facility] (Aceta 10:32: en) Oral 975 [facility] minoph 06 AM mg PO Care EDT Corporatio n Medication administered onsite Omeprazole 40 MG omeprazole 40 mg 02/05/2019 1.00 ORAL activ e take 1 NEXTGEN Delayed Release capsule,delayed 12:00:00 AM {capsule} [facility] ([facility] Oral Capsule release EDT by oral J osep omeprazole 40 mg route Me dical capsule,delayed every Janice ter) release day before a meal traMADol HCl 50 01/19/2019 999 MG UNK complet traMADol [place] [facility] Oral Tablet 02:36:[address] PM ed HCl [address] EDT MG [facility] Health TAKE 1 Care TABLET 3 Corporat TIMES ion DAILY NEEDED. Dispense : 20 Supervis ing lm n: Leidy Lomax MD traMADol HCl 50 01/19/2019 999 MG UNK complet traMADol [place] MG Oral Tablet 02:36:[address] EDT MG Oral [facility] Tablet Health TAKE 1 Care TABLET 3 Corporat TIMES ion DAILY NEEDED. Dispense : 20 Supervis ing lm n: Leidy Lomax MD Ibuprofen 800 MG Ibuprofen 800 MG 01/19/2019 999 MG UNK com plet Ibuprofe [place] Oral Tablet Oral Tablet 02:36:54 PM ed n [address] EDT [facility] Tablet Health TAKE 1 Care TABLET 3 Corporat TIMES ion DAILY NEEDED. Dispense : 30 Supervis ing lm n: Leidy Lomax MD Ibuprofen 800 MG Ibuprofen 800 MG 01/19/2019 999 MG UNK com plet Ibuprofe [place] Oral Tablet Oral Tablet 02:36:54 PM ed n [address] EDT Oral [facility] Tablet Health TAKE 1 Care TABLET 3 Corporat TIMES ion DAILY NEEDED. Dispense : 30 Supervis ing lm n: Leidy Lomax MD No OTC Drugs No OTC Drugs 05/26/2017 U active No OTC VIBHA Oral Tablet Oral Tablet 12:00:00 AM N Drugs ([facility] EDT I [facility]) terbinafine 250 Terbinafine HCl 05/18/2017 U 1 complet Terbinaf VIBHA MG Oral Tablet 250MG Oral 12:00:00 AM N ed ine HCl ([facility] Terbinafine HCl Tablet EDT I Ve rnon 250MG Oral [facility]) Naproxen 500 MG Naproxen 500MG 05/12/2017 U 1 active Naproxen VIBHA Oral Tablet Oral Tablet 12:00:00 AM N ([facility] Naproxen 500MG EDT I [place] Oral Tablet [facility]) No OTC Drugs No OTC Drugs 05/12/2017 U suspend No OTC VIBHA Oral Tablet Oral Tablet 12:00:00 AM [facility] Itraconazole 100 itraconazole 100 04/21/2017 2.00 ORAL activ e take 2 NEXTGEN MG Oral Capsule mg capsule 12:00:00 AM {capsule} capsule ([facility] itraconazole 100 EDT by oral Malik mg capsule route [facility]) day with food Clotrimazole 10 clotrimazole 1 % 03/23/2017 TOPIC activ e apply by NEXTGEN MG/ML Topical topical cream 12:00:00 AM AL topical ([facility] Cream EDT route 2 [place] clotrimazole 1 % times Me dical topical cream every Cente r) day to the affected and surround ing areas of skin in the morning and evening Hydrocortisone hydrocortisone 03/23/2017 TOPIC active apply by NEXTGEN 25 MG/ML Topical 2.5 % topical 12:00:00 AM AL topical ([facility] Cream cream EDT route 2 [place] hydrocortisone times Medi sanaz 2.5 % topical every Cente r) cream day a thin layer to the affected area(s) fluticasone 50 Fluticasone 05/31/2016 1.00 spray NASAL activ e inhale 1 NEXTGEN mcg/actuation propionate 0.05 12:00:00 AM spray by ([facility] nasal MG/ACTUAT EDT intranas Mendel hs spray,suspension Metered Dose al route Medical Nasal [place] every Center ) day in each nostril Carboxymethylcel Lubricant Gel 09/09/2015 active apply to NEXTGEN lulose 0.0025 0.25 %-0.3 % eye 12:00:00 AM affected ([facility] MG/MG / liquid gel drops EST eye T ID Malik hypromellose prn Medical 0.003 MG/MG [place]) Ophthalmic Gel Lubricant Gel 0.25 %-0.3 % eye liquid gel drops Not Taking Home Not Taking Home 999 MG UNK complet Not [facility] Meds ed Taking [facility] Care Corporat ion Not Taking Home Not Taking Home 999 MG UNK complet Not [facility] Meds ed Taking [facility] Corporat ion Acetaminophen [id number] complet [facility] [325 mg Tablet]: ed ter 975 MG Oral Q6H [facility] Corporat ion Naproxen 500 MG naproxen 500 mg 1 complet [facility] Oral Tablet Tablet, Ordered ed Malik naproxen 500 mg By: Nick Medical Tablet, Ordered Richelle Acevedo By: Nick MDDirections: 1 Wallace Steinberg, [place] oral MDDirections: 1 twice a day PRN tablet oral pain twice a day PRN pain Insurance Providers Payer name Policy type / Policy ID Covered Covered republican's Policy Plan Coverage type republican ID relationship to M[employer] Information mccall MEDICAID [id number] SP [id number] UNK UNK UNK UNK UNK UNK SELF PAY SP INSURANCE AFFINITY [id number] SP [id number] ESSENTIAL PLAN 3 4 Affinity Individual 0 Self 0 Health Plan Policy AFFINITY O [id number] 01 [id number] HEALTH PLAN AFFINITY O [id number] HEALTH PLAN Affinity Individual 0 Self 0 Health Plan Policy Affinity Individual 0 Self 0 Health Plan Policy Affinity Individual 0 Self 0 Health Plan Policy Affinity Individual 0 Self 0 Health Plan Policy Affinity Individual 0 Self 0 Health Plan Policy [facility] [place] [id number] HOMER AFFINITY [id number] PT [id number] ESSENTIAL PLAN 4 Affinity Individual 0 Self 0 Health Plan Policy W [id number] Affinity Individual 0 Self 0 Health Plan Policy AIG CLAIMS [id number] SP [id number] [facility] [id number] S [id number] Options Essential Plan 4 Flex Vision [id number] S [id number] Essential Plan 3 4 Affinity O [id number] S [id number] Essential Plan 4 Dental [id number] S [id number] Dentaquest Essential Plan 4 Medicaid [id number] S [id number] Regular Clinic Visit Flex Vision [id number] S [id number] Essential Plan 3 4 Dental [id number] S [id number] Dentaquest Essential Plan 4 [place] [facility] [id number] S [id number] HMO Essential Plan 4 Problems, Conditions, and Diagnoses Code Display Name Description Problem Type Effective Data Sour ce(s) Dates [id number] Overweight Overweight Finding 11/19/2017 [place] ([place] (finding) 12:00:00 AM [facility]) [id number] Overweight Overweight Finding 11/19/2017 [place] (M[place] (finding) 12:00:00 AM [facility]) [id number] Overweight Overweight Finding 11/19/2017 [place] (M[place] t (finding) 12:00:00 AM [facility]) [id number] Overweight Overweight Finding 11/19/2017 [place] (M[place] (finding) 12:00:00 AM [facility]) [id number] Overweight Overweight Finding 11/19/2017 [place] (Moun t (finding) 12:00:00 AM [facility]) [id number] Overweight Overweight Finding 11/19/2017 [place] ([place] (finding) 12:00:00 AM [facility]) [id number] Overweight Overweight Finding 11/19/2017 [place] ([place] (finding) 12:00:00 AM [facility]) 247325691 Overweight Overweight Finding 11/19/2017 [place] (Moun t (finding) 12:00:00 AM [facility]) [id number] Intervertebral Herniated Problem 05/26/2017 [place] ( [place] disc prolapse Intervertebral 12:00:00 AM [place] (disorder) Disc [facility]) 09584508 Fracture of ankle Fracture of Ankle Problem 05/26/2017 [place] ([place] (disorder) 12:00:00 AM [facility]) [id number] Arthropathy of Arthropathy Knee / Problem 05/26/2017 [place] E[place]WAY ([facility] knee joint Patella / Tibia / 12:00:00 AM [place] (disorder) Fibula [facility]) [id number] Intervertebral Herniated Problem 05/26/2017 VIBHA ( [facility] disc prolapse Intervertebral 12:00:00 AM [place] (disorder) Disc [facility]) [id number] Fracture of ankle Fracture of Ankle Problem 05/26/2017 [place] ([place] (disorder) 12:00:00 AM [facility]) [id number] Arthropathy of Arthropathy Knee / Problem 05/26/2017 [place] E[place] ([facility] knee joint Patella / Tibia / 12:00:00 AM [place] (disorder) [facility]) 33408929 Intervertebral Herniated Problem 05/26/2017 VIBHA ( [facility] disc prolapse Intervertebral 12:00:00 AM [place] (disorder) Disc [facility]) 39906533 Fracture of ankle Fracture of Ankle Problem 05/26/2017 [place] ([place] (disorder) 12:00:00 AM [place] [facility]) [id number] Arthropathy of Arthropathy Knee / Problem 05/26/2017 [place] E[place] ([facility] knee joint Patella / Tibia / 12:00:00 AM [place] (disorder) [facility]) [id number] Intervertebral Herniated Problem 05/26/2017 [place] ( [place] disc prolapse Intervertebral 12:00:00 AM [place] (disorder) Disc [facility]) 98587856 Fracture of ankle Fracture of Ankle Problem 05/26/2017 [place] ([place] (disorder) 12:00:00 AM [place] [facility]) 515844894 Arthropathy of Arthropathy Knee / Problem 05/26/2017 [place] E[place]AY ([facility] knee joint Patella / Tibia / 12:00:00 AM [place] (disorder) [facility]) 74260162 Intervertebral Herniated Problem 05/26/2017 [place] ( [place] disc prolapse Intervertebral 12:00:00 AM [place] (disorder) Disc [facility]) 13796899 Fracture of ankle Fracture of Ankle Problem 05/26/2017 [place] ([place] (disorder) 12:00:00 AM [place] [facility]) 549848688 Arthropathy of Arthropathy Knee / Problem 05/26/2017 [place] EENWAY ([facility] knee joint Patella / Tibia / 12:00:00 AM [place] (disorder) [facility]) 84015484 Intervertebral Herniated Problem 05/26/2017 VIBHA ( [facility] disc prolapse Intervertebral 12:00:00 AM [place] (disorder) Disc [facility]) [id number] Fracture of ankle Fracture of Ankle Problem 05/26/2017 [place] ([place] (disorder) 12:00:00 AM [place] [facility]) [id number] Arthropathy of Arthropathy Knee / Problem 05/26/2017 [place] EENWAY ([facility] knee joint Patella / Tibia / 12:00:00 AM [place] (disorder) [facility]) [id number] Intervertebral Herniated Problem 05/26/2017 [place] ( [place] disc prolapse Intervertebral 12:00:00 AM [place] (disorder) Disc [facility]) 94313113 Fracture of ankle Fracture of Ankle Problem 05/26/2017 [place] ([place] (disorder) 12:00:00 AM [place] [facility]) 923852227 Arthropathy of Arthropathy Knee / Problem 05/26/2017 [place] E[place] ([facility] knee joint Patella / Tibia / 12:00:00 AM [place] (disorder) [facility]) 00370831 Intervertebral Herniated Problem 05/26/2017 [place] ( [place] disc prolapse Intervertebral 12:00:00 AM [place] (disorder) Disc [facility]) [id number] Fracture of ankle Fracture of Ankle Problem 05/26/2017 [place] ([place] [facility]disorder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 mg/dL 02:23</td><td> [facility] in Blood Glucose-Serum [facility] </td><td> Negotiant 105
(70-105) mg/dL </td> Neutrophils [#] 67.3 % 32.0-7 <td> 08/28/2018 [facility] in Body fluid 0.0 % 02:23</td><td> [facility] by Manual count Neutrophils [facility] </td><td> Negotiant 67.3
(32.0-70.0) % </td> Sodium 136 mEq/L 135-14 <td> 08/28/2018 [place] [Moles/volume] 5 02:23</td><td> [facility] in Serum or mEq/L Sodium-Serum [facility] Plasma </td><td> Negotiant 136
(135-145) mEq/L </td> Immature 0.3 % 0.0-0. <td> 08/28/2018 [place] granulocytes/10 5 % 02:23</td><td> [facility] 0 leukocytes in IG% </td><td> [facility] Blood by [employer] Automated count 0.3
(0.0-0.5) %
The IG fraction represents metamyelocytes, myelocytes and/or
promyelocytes and is only reported as part of the automated
differential when found at a percentage of less than 6.
If higher than 6%, a manual differential will be performed.

(0.0-0.5) % </td> Basophils 0.2 % 0.0-2. <td> 08/28/2018 [place] [#/volume] in 0 % 02:23</td><td> [facility] Blood by [facility] Automated count </td><td> Negotiant 0.2
(0.0-2.0) % </td> Carbon dioxide, 26 mEq/L 22-30 <td> 08/28/2018 [facility] total mEq/L 02:23</td><td> [facility] [Moles/volume] CO2 </td><td> Health Car e in Serum or Corporation Plasma 26
(22-30) mEq/L </td> Potassium 4.1 mEq/L 3.5-5. <td> 08/28/2018 [place] [Moles/volume] 1 02:23</td><td> [facility] in Serum or mEq/L Potassium-Serum [facility] Care Plasma </td><td> Negotiant 4.1
(3.5-5.1) mEq/L </td> Urea nitrogen 15 mg/dL 6-22 <td> 08/28/2018 [facility] r [Mass/volume] mg/dL 02:23</td><td> [facility] in Blood BUN </td><td> [facility] Care Negotiant 15
(6-22) mg/dL </td> Chloride 103 mEq/L 98-107 <td> 08/28/2018 [place] [Moles/volume] mEq/L 02:23</td><td> [facility] in Serum or Chloride Health Care Plasma </td><td> Neg[employer]iant 103
(98-107) mEq/L </td> Creatinine 0.76 mg/dL 0.72-1 <td> 08/28/2018 [place] [Moles/volume] .25 02:23</td><td> [facility] in Serum or mg/dL Creatinine. Health Care Plasma </td><td> Negotiant 0.76
(0.72-1.25) mg/dL </td> Proteins - 6.7 g/dL 6.4-8. <td> 08/24/2018 [place] Total 3 g/dL 19:35</td><td> [facility] Proteins - Health Care Total Negotiant </td><td> 6.7
(6.4-8.3) g/dL </td> Albumin 4.2 g/dL 3.4-4. <td> 08/24/2018 [place] [Mass/volume] 8 g/dL 19:35</td><td> County in Serum or Albumin [facility] Care Plasma </td><td> Negotiant 4.2
(3.4-4.8) g/dL </td> Bilirubin.total 0.4 mg/dL 0.2-1. <td> 08/24/2018 [facility] [Mass/volume] 3 19:35</td><td> [place] in Blood mg/dL Bilirubin - Health Care [place] </td><td> 0.4
(0.2-1.3) mg/dL </td> Alanine 39 U/L 6-55 <td> 08/24/2018 [place] aminotransferas U/L 19:35</td><td> County e [Enzymatic ALT (SGPT) Health Care activity/volume </td><td> Negotiant ] in Serum or Plasma 39
(6-55) U/L </td> Aspartate 22 U/L 4-35 <td> 08/24/2018 [place] aminotransferas U/L 19:35</td><td> County e [Enzymatic AST (SGOT) Health Care activity/volume </td><td> Negotiant ] in Serum or Plasma 22
(4-35) U/L </td> Calcium 9.1 mg/dL 8.6-10 <td> 08/28/2018 [place] [Mass/volume] .2 02:23</td><td> [place] in Blood mg/dL Calcium Health Care </td><td> Neg[employer]iant 9.1
(8.6-10.2) mg/dL </td> Anion gap in 7 mEq/L 7-13 <td> 08/28/2018 [place] Serum or Plasma mEq/L 02:23</td><td> [facility] Anion Gap Health Care </td><td> Negotiant 7
(7-13) mEq/L </td> Lipemic index No Lipemia <td> 08/28/2018 [facility] er of Serum or 02:23</td><td> [facility] Plasma Lipemia Index Health Care </td><td> [facility] No Lipemia
</td> Globulin 2.5 gm/dL 2.9-4. <td> 08/24/2018 [place] [Mass/volume] 0 19:35</td><td> County in Serum gm/dL Globulin Health Care </td><td><ian [facility] raph styleCode="Bold "> 2.5 L </paragraph>
(2.9-4.0) gm/dL </td> Hemolysis index No <td> 08/28/2018 [facility] of Serum or Hemolysis 02:23</td><td> [facility] Plasma Hemolysis Index Health Care </td><td> [facility] No Hemolysis
</td> Amylase 54 U/L 22-100 <td> 08/24/2018 [place] [Enzymatic U/L 19:35</td><td> [facility] activity/volume Amylase Level Health Car e ] in Serum or </td><td> [facility] Plasma 54
(22-100) U/L </td> Icteric index Not <td> 08/28/2018 [facility] r of Serum or Icteric 02:23</td><td> [facility] Plasma Icteric Index Health Care </td><td> Negotiant Not Icteric
</td> aPTT panel - 25.5 secs 25.0-3 <td> 08/25/2018 [place] Platelet poor 2.0 08:08</td><td> [facility] plasma secs Partial Health Care Thromboplastin [facility] Time </td><td> 25.5
(25.0-32.0) secs </td> Prothrombin 10.4 secs 9.8-12 <td> 08/25/2018 [place] time (PT) .0 08:08</td><td> [facility] secs Prothrombin Health Care Time. [facility] </td><td> 10.4
(9.8-12.0) secs </td> Phosphate 3.5 mg/dL 2.3-4. <td> 08/28/2018 [place] [Mass/volume] 7 02:23</td><td> County in Serum or mg/dL Inorganic Health Care Plasma Phosphorus [facility] </td><td> 3.5
(2.3-4.7) mg/dL </td> Magnesium 2.3 mg/dL 1.6-2. <td> 08/28/2018 [place] [Mass/volume] 6 02:23</td><td> [place] in Serum or mg/dL Magnesium Level Health Care Plasma </td><td> Neg[facility]iant 2.3
(1.6-2.6) mg/dL </td> Erythrocyte 95.2 fL 80.0-9 <td> 08/28/2018 [place] mean 5.0 fL 02:23</td><td> [facility] corpuscular MCV [facility] Care volume [Entitic </td><td><ian Corporat ion volume] by raph Automated count styleCode="Bold "> 95.2 H </paragraph>
(80.0-95.0) fL </td> Hematocrit 37.9 % 38.0-4 <td> 08/28/2018 [place] [Volume 7.0 % 02:23</td><td> County Fraction] of HCT [facility] Care Blood by </td><td><[email or web address] Automated count raph styleCode="Bold "> 37.9 L </paragraph>
(38.0-47.0) % </td> Hemoglobin 12.8 g/dL 12.3-1 <td> 08/28/2018 [place] [Mass/volume] 6.0 02:23</td><td> [place] in Blood g/dL HGB </td><td> [facility] Corporation 12.8
(12.3-16.0) g/dL </td> Erythrocytes 3.98 m/mm3 4.20-5 <td> 08/28/2018 [facility] r [#/volume] in .50 02:23</td><td> County Blood m/mm3 RBC Health Care </td><td><[email or web address] raph styleCode="Bold "> 3.98 L </paragraph>
(4.20-5.50) m/mm3 </td> Leukocytes 6.6 k/mm3 4.5-10 <td> 08/28/2018 [place] [#/volume] in .8 02:23</td><td> [facility] Blood by k/mm3 WBC </td><td> Health Care Automated count Negotiant 6.6
(4.5-10.8) k/mm3 </td> Platelets 232 k/mm3 160-41 <td> 08/28/2018 [place] [#/volume] in 0 02:23</td><td> [facility] Blood by k/mm3 Platelet Count Health Care Automated count </td><td> [employer] 232
(160-410) k/mm3 </td> Platelet mean 10.0 fL 9.8-12 <td> 08/28/2018 [facility] r volume [Entitic .8 fL 02:23</td><td> County volume] in MPV </td><td> Health Care Blood by [employer] Automated count 10.0
(9.8-12.8) fL </td> Erythrocyte 12.7 % 11.5-1 <td> 08/28/2018 [place] distribution 4.5 % 02:23</td><td> County width [Entitic RDW </td><td> Health Car e volume] by [employer] Automated count 12.7
(11.5-14.5) % </td> Erythrocyte 33.8 % 32.0-3 <td> 08/28/2018 [place] mean 6.0 % 02:23</td><td> [facility] corpuscular [facility] </td><td> Health Care hemoglobin [employer] concentration 33.8 [Mass/volume] in Blood from
Fetus by (32.0-36.0) % Automated count </td> Erythrocyte 32.2 pg 27.0-3 <td> 08/28/2018 [place] mean 1.5 pg 02:23</td><td> [facility] corpuscular [facility]CH [facility] Care hemoglobin </td><td><ian Corporation [Entitic mass] raph by Automated styleCode="Bold count "> 32.2 H </paragraph>
(27.0-31.5) pg </td> Neutrophils [#] 67.3 % 32.0-7 <td> 08/28/2018 [facility] in Body fluid 0.0 % 02:23</td><td> [facility] by Manual count Neutrophils [facility] </td><td> [facility] 67.3
(32.0-70.0) % </td> Immature 0.3 % 0.0-0. <td> 08/28/2018 [place] granulocytes/10 5 % 02:23</td><td> [facility] 0 leukocytes in IG% </td><td> [facility] Blood by [employer] Automated count 0.3
(0.0-0.5) %
The IG fraction represents metamyelocytes, myelocytes and/or
promyelocytes and is only reported as part of the automated
differential when found at a percentage of less than 6.
If higher than 6%, a manual differential will be performed.

(0.0-0.5) % </td> Basophils 0.2 % 0.0-2. <td> 08/28/2018 [place] [#/volume] in 0 % 02:23</td><td> [facility] Blood by Basophils [facility] Automated count </td><td> Neg[place]iant 0.2
(0.0-2.0) % </td> Basophils+Eosin 1.2 % 0.0-5. <td> 08/28/2018 [facility] ophils+Monocyte 0 % 02:23</td><td> [facility] s [#/volume] in Eosinophils Health Care Blood by </td><td> Corporation Automated count 1.2
(0.0-5.0) % </td> Monocytes/Leuko 7.0 % 0.0-11 <td> 08/28/2018 [facility] cytes [Pure .0 % 02:23</td><td> [facility] number Monocytes. Health Care fraction] in </td><td> Corporation Blood by Automated count 7.0
(0.0-11.0) % </td> Lymphocytes 24.0 % 21.0-5 <td> 08/28/2018 [place] [#/volume] in 5.0 % 02:23</td><td> [facility] Blood by Lymphocytes Health Care Automated count </td><td> [employer] 24.0
(21.0-55.0) % </td> Chloride 103 mEq/L 98-107 <td> 08/28/2018 [place] [Moles/volume] mEq/L 02:23</td><td> County in Serum or Chloride Health Care Plasma </td><td> Corporation 103
(98-107) mEq/L </td> Potassium 4.1 mEq/L 3.5-5. <td> 08/28/2018 [place] [Moles/volume] 1 02:23</td><td> County in Serum or mEq/L Potassium-Serum Health Care Plasma </td><td> [facility] 4.1
(3.5-5.1) mEq/L </td> Sodium 136 mEq/L 135-14 <td> 08/28/2018 [place] [Moles/volume] 5 02:23</td><td> County in Serum or mEq/L Sodium-Serum Health Care Plasma </td><td> [employer] 136
(135-145) mEq/L </td> Glucose 105 mg/dL 70-105 <td> 08/28/2018 [place] [Mass/volume] mg/dL 02:23</td><td> County in Blood Glucose-Serum Health Care </td><td> [facility] 105
(70-105) mg/dL </td> Bilirubin.total 0.4 mg/dL 0.2-1. <td> 08/24/2018 [facility] [Mass/volume] 3 19:35</td><td> [place] in Blood mg/dL Bilirubin - Health Care [employer] </td><td> 0.4
(0.2-1.3) mg/dL </td> Alanine 39 U/L 6-55 <td> 08/24/2018 [place] aminotransferas U/L 19:35</td><td> County e [Enzymatic ALT (SGPT) Health Care activity/volume </td><td> Neg[facility]iant ] in Serum or Plasma 39
(6-55) U/L </td> Aspartate 22 U/L 4-35 <td> 08/24/2018 [place] aminotransferas U/L 19:35</td><td> County e [Enzymatic AST (SGOT) Health Care activity/volume </td><td> [facility]iant ] in Serum or Plasma 22
(4-35) U/L </td> Creatinine 0.76 mg/dL 0.72-1 <td> 08/28/2018 [place] [Moles/volume] .25 02:23</td><td> County in Serum or mg/dL Creatinine. Health Care Plasma </td><td> Neg[facility] 0.76
(0.72-1.25) mg/dL </td> Urea nitrogen 15 mg/dL 6-22 <td> 08/28/2018 [facility] r [Mass/volume] mg/dL 02:23</td><td> [facility] in Blood BUN </td><td> [facility] 15
(6-22) mg/dL </td> Carbon dioxide, 26 mEq/L 22-30 <td> 08/28/2018 [facility] total mEq/L 02:23</td><td> [facility] [Moles/volume] CO2 </td><td> Health Car e in Serum or Negotiant Plasma 26
(22-30) mEq/L </td> Globulin 2.5 gm/dL 2.9-4. <td> 08/24/2018 [place] [Mass/volume] 0 19:35</td><td> [facility] in Serum gm/dL Globulin Health Care </td><td><ian [facility] raph styleCode="Bold "> 2.5 L </paragraph>
(2.9-4.0) gm/dL </td> Anion gap in 7 mEq/L 7-13 <td> 08/28/2018 [place] Serum or Plasma mEq/L 02:23</td><td> [facility] Anion Gap Health Care </td><td> [employer] 7
(7-13) mEq/L </td> Calcium 9.1 mg/dL 8.6-10 <td> 08/28/2018 [place] [Mass/volume] .2 02:23</td><td> [facility] in Blood mg/dL Calcium Health Care </td><td> [employer] 9.1
(8.6-10.2) mg/dL </td> Albumin 4.2 g/dL 3.4-4. <td> 08/24/2018 [place] [Mass/volume] 8 g/dL 19:35</td><td> [facility] in Serum or Albumin Health Care Plasma </td><td> [employer] 4.2
(3.4-4.8) g/dL </td> Proteins - 6.7 g/dL 6.4-8. <td> 08/24/2018 [place] Total 3 g/dL 19:35</td><td> [facility] Proteins - Health Care Total [employer] </td><td> 6.7
(6.4-8.3) g/dL </td> aPTT panel - 25.5 secs 25.0-3 <td> 08/25/2018 [place] Platelet poor 2.0 08:08</td><td> [facility] plasma secs Partial [facility] Care Thromboplastin [facility] Time </td><td> 25.5
(25.0-32.0) secs </td> Prothrombin 10.4 secs 9.8-12 <td> 08/25/2018 [place] time (PT) .0 08:08</td><td> [facility] secs Prothrombin Health Care Time. Negotiant </td><td> 10.4
(9.8-12.0) secs </td> Phosphate 3.5 mg/dL 2.3-4. <td> 08/28/2018 [place] [Mass/volume] 7 02:23</td><td> [facility] in Serum or mg/dL Inorganic Health Care Plasma Phosphorus Negotiant </td><td> 3.5
(2.3-4.7) mg/dL </td> Icteric index Not <td> 08/28/2018 [facility] r of Serum or Icteric 02:23</td><td> [facility] Plasma Icteric Index Health Care </td><td> [facility] Not Icteric
</td> Lipemic index No Lipemia <td> 08/28/2018 [facility] er of Serum or 02:23</td><td> [facility] Plasma Lipemia Index Health Care </td><td> Negotiant No Lipemia
</td> Hemolysis index No <td> 08/28/2018 [facility] ter of Serum or Hemolysis 02:23</td><td> [facility] Plasma Hemolysis Index Health [facility] [place] </td><td> Negotiant No Hemolysis
</td> Magnesium 2.3 mg/dL 1.6-2. <td> 08/28/2018 [place] [Mass/volume] 6 02:23</td><td> [place] in Serum or mg/dL Magnesium Level Health Care Plasma </td><td> [facility] 2.3
(1.6-2.6) mg/dL </td> Amylase 54 U/L 22-100 <td> 08/24/2018 [place] [Enzymatic U/L 19:35</td><td> County activity/volume Amylase Level Health [facility] e ] in Serum or </td><td> Corporation Plasma 54
(22-100) U/L </td> ID Date Data Source Urinalysis.[id number] 08/24/2018 04:50:00 PM EST [facility] 0 Name Value Range Interpretation Description Data Sup porting Code Source(s) Document(s ) Color of Urine YELLOW <content Saint styleCode="Festus Malik d">Color, [facility] Urine Center </content>YELL OW <content styleCode="Jocelin lics"> (YELLOW )</content> UNK CLEAR <content Saint styleCode="Festus Malik d">Urine [facility] Clarity Center </content>WYATT R <content styleCode="Jocelin lics"> (CLEAR )</content> Glucose NEGATIVE <content Saint [Mass/volume] styleCode="Festus Malik in Urine by d">Urine Medical Test strip Glucose Center </content>NEGA TIVE MG/DL<content styleCode="Jocelin lics"> (NEGATIVE MG/DL)</conten t> Ketones NEGATIVE <content Saint [Mass/volume] styleCode="Festus Malik in Urine by d">Urine Medical Test strip Ketone Center </content>NEGA TIVE MG/DL<content styleCode="Jocelin lics"> (NEGATIVE MG/DL)</conten t> Specific 1.015-1.02 Below low normal <content Saint gravity of 5 styleCode="Festus Malik Urine by Test d">Urine Medical strip Specific Center [place] </content>1.01 0 NM L<content styleCode="Jocelin lics"> (1.015-1.025 NM)</content> Hemoglobin NEGATIVE <content Saint [Presence] in styleCode="Festus Malik Urine by Test d">Urine Blood Medical strip </content>SMAL Center L <content styleCode="Jocelin lics"> (NEGATIVE )</content> UNK NEGATIVE <content Saint styleCode="Festus Malik d">Urine Medical Bilirubin Center </content>NEGA TIVE <content styleCode="Jocelin lics"> (NEGATIVE )</content> Protein NEGATIVE <content Saint [Mass/volume] styleCode="Festus Malik in Urine by d">Urine Medical Test strip Protein Center </content>NEGA TIVE MG/DL<content styleCode="Jocelin lics"> (NEGATIVE MG/DL)</conten t> pH of Urine by 4.5-8.0 <content Saint Test strip styleCode="Festus Malik d">Urine pH Medical </content>7.0 Center NM<content styleCode="Jocelin lics"> (4.5-8.0 NM)</content> Leukocyte NEGATIVE <content Saint esterase styleCode="Festus Malik [Presence] in d">Urine Medical Urine by Test Leukocyte Center strip </content>NEGA TIVE <content styleCode="Jocelin lics"> (NEGATIVE )</content> Urobilinogen 0.2-1.0 <content Saint [Units/volume] styleCode="Festus Gan in Urine by d">Urine Medical Test strip Urobilinogen Center </content>0.2 MG/DL<content styleCode="Jocelin lics"> (0.2-1.0 MG/DL)</conten t> Nitrite NEGATIVE <content Saint [Presence] in styleCode="Festus Gan Urine by Test d">Urine Medical strip Nitrite Center </content>NEGA TIVE <content styleCode="Jocelin lics"> (NEGATIVE )</content> UNK 0-3 <content Saint styleCode="[facility] d">Urine Red Medical Blood Cell Center </content>3-5 HPF<content styleCode="Jocelin lics"> (0-3 HPF)</content> UNK 0-3 <content Saint styleCode="[facility] d">Urine White Medical Blood Cell Center </content>0-3 HPF<content styleCode="Jocelin lics"> (0-3 HPF)</content> ID Date Data Source CHMROUTINECCDA.[id number] 08/24/2018 04:50:00 PM [facility] -0500 Name Value Range Interpretation Description Data Sup porting Code Source(s) Document(s ) Cannabinoids <content Saint [Presence] in styleCode="Festus Gan Urine by Screen d">Cannabinoid Medical method >50 ng/mL s Center </content>PRES UMPTIVE POSITIVE NG/ML (Reference Range: not available)<br/ > ID Date Data Source Urinalysis 08/24/2018 04:50:00 PM [facility] Name Value Range Interpretation Description Data Sup porting Code Source(s) Document(s ) Color of Urine YELLOW <content Saint styleCode="[facility] d">Color, Medical Urine Center </content>YELL OW <content styleCode="Jocelin lics"> (YELLOW )</content> UNK CLEAR <content Saint styleCode="[facility] d">Urine Medical Clarity Center </content>WYATT R <content styleCode="Jocelin lics"> (CLEAR )</content> Ketones NEGATIVE <content Saint [Mass/volume] styleCode="Festus Malik in Urine by d">Urine Medical Test strip Ketone Center </content>NEGA TIVE MG/DL<content styleCode="Jocelin lics"> (NEGATIVE MG/DL)</conten t> Specific 1.015-1.02 Below low normal <content [facility] gravity of 5 styleCode="Festus Malik Urine by Test d">Urine Medical strip Specific Center [place] </content>1.01 0 NM L<content styleCode="Jocelin lics"> (1.015-1.025 NM)</content> UNK NEGATIVE <content Saint styleCode="Festus Malik d">Urine Medical Bilirubin Center </content>NEGA TIVE <content styleCode="Jocelin lics"> (NEGATIVE )</content> Glucose NEGATIVE <content Saint [Mass/volume] styleCode="Festus Malik in Urine by d">Urine Medical Test strip Glucose Center </content>NEGA TIVE MG/DL<content styleCode="Jocelin lics"> (NEGATIVE MG/DL)</conten t> Hemoglobin NEGATIVE <content Saint [Presence] in styleCode="Festus Malik Urine by Test d">Urine Blood Medical strip </content>SMAL Center L <content styleCode="Jocelin lics"> (NEGATIVE )</content> pH of Urine by 4.5-8.0 <content Saint Test strip styleCode="Festus Malik d">Urine pH Medical </content>7.0 Center NM<content styleCode="Jocelin lics"> (4.5-8.0 NM)</content> Urobilinogen 0.2-1.0 <content Saint [Units/volume] styleCode="Festus Malik in Urine by d">Urine Medical Test strip Urobilinogen Center </content>0.2 MG/DL<content styleCode="Jocelin lics"> (0.2-1.0 MG/DL)</conten t> Protein NEGATIVE <content Saint [Mass/volume] styleCode="Festus Malik in Urine by d">Urine Medical Test strip Protein Center </content>NEGA TIVE MG/DL<content styleCode="Jocelin lics"> (NEGATIVE MG/DL)</conten t> UNK 0-3 <content Saint styleCode="Festus Cais d">Urine Red Medical Blood Cell Center </content>3-5 HPF<content styleCode="Jocelin lics"> (0-3 HPF)</content> Nitrite NEGATIVE <content Saint [Presence] in styleCode="Festus Gan Urine by Test d">Urine Medical strip Nitrite Center </content>NEGA TIVE <content styleCode="Jocelin lics"> (NEGATIVE )</content> Leukocyte NEGATIVE <content Saint esterase styleCode="Festus Gan [Presence] in d">Urine Medical Urine by Test Leukocyte Center strip </content>NEGA TIVE <content styleCode="Jocelin lics"> (NEGATIVE )</content> UNK 0-3 <content Saint styleCode="Festus Cais d">Urine White Medical Blood Cell Center </content>0-3 HPF<content styleCode="Jocelin lics"> (0-3 HPF)</content> ID Date Data Source CHMROUTINECCDA 08/24/2018 04:50:00 PM [facility] Name Value Range Interpretation Description Data Sup porting Code Source(s) Document(s ) Cannabinoids <content Saint [Presence] in styleCode="Festus Gan Urine by Screen d">Cannabinoid Medical method >50 ng/mL s Center </content>PRES UMPTIVE POSITIVE NG/ML (Reference Range: not available)<br/ > ID Date Data Source Liver 08/24/2018 03:55:00 PM [facility] Profile.[id number] Name Value Range Interpretation Description Data Sup porting Code Source(s) Document(s ) Aspartate 17-59 <content Saint aminotransferase styleCode="Bold"> [facility] hs [Enzymatic Aspartate Medical activity/volume] Aminotransferase Center in Serum or Plasma (AST) </content>31 IU/L<content styleCode="Italic s"> (17-59 IU/L)</content> Alanine 7-50 <content [facility] aminotransferase styleCode="Bold"> Mendel hs [Enzymatic Alanine Medical activity/volume] Aminotransferase Center in Serum or Plasma (ALT) </content>47 IU/L<content styleCode="Italic s"> (7-50 IU/L)</content> Bilirubin.total 0.2-1.3 <content [facility] [Mass/volume] in styleCode="Bold"> Mendel hs Serum or Plasma Bilirubin Total Medical </content>0.5 Center MG/DL<content styleCode="Italic s"> (0.2-1.3 MG/DL)</content> Albumin 3.5-5.0 <content [facility] [Mass/volume] in styleCode="Bold"> Mendel hs Serum or Plasma Albumin Medical </content>4.8 Center G/DL<content styleCode="Italic s"> (3.5-5.0 G/DL)</content> Alkaline 38-126 <content Saint phosphatase styleCode="Bold"> Malik [Enzymatic Alkaline Medical activity/volume] Phosphatase (ALP) Cente r in Serum or Plasma </content>49 IU/L<content styleCode="Italic s"> (38-126 IU/L)</content> ID Date Data Source HematologyRou.[id number] 08/24/2018 03:55:00 PM EST [facility] 0500 Name Value Range Interpretation Description Data Sup porting Code Source(s) Document(s ) Leukocytes 4.4-11.0 <content Saint [#/volume] in styleCode="Bold Malik Blood by ">White Blood Medical Automated count Cell Count Center </content>6.51 KCUMM<content styleCode="Ital ics"> (4.4-11.0 KCUMM)</content > Erythrocytes 4.4-5.9 <content Saint [#/volume] in styleCode="Bold Malik Blood by ">Red Blood Medical Automated count Cell Count Center </content>4.84 MCUMM<content styleCode="Ital ics"> (4.4-5.9 MCUMM)</content > Erythrocyte mean 26.0-34. <content [facility] corpuscular 0 styleCode="Bold Malik hemoglobin ">Mean Medical [Entitic mass] Corposcular Center by Automated Hemoglobin count </content>32.0 PG<content styleCode="Ital ics"> (26.0-34.0 PG)</content> Hemoglobin 13.5-17. <content [facility] [Mass/volume] in 5 styleCode="Bold Malik Blood ">Hemoglobin Medical </content>15.5 Center G/DL<content styleCode="Ital ics"> (13.5-17.5 G/DL)</content> Hematocrit 41.0-53. <content Saint [Volume 0 styleCode="Bold Malik Fraction] of ">Hematocrit Medical Blood by </content>45.1 Center Automated count %<content styleCode="Ital ics"> (41.0-53.0 %)</content> Erythrocyte mean 80.0-100 <content Saint corpuscular .0 styleCode="Bold Malik volume [Entitic ">Mean Medical volume] by Corpuscular Center Automated count Volume </content>93.2 FL<content styleCode="Ital ics"> (80.0-100.0 FL)</content> Erythrocyte mean 32.0-37. <content [facility] corpuscular 0 styleCode="Bold Malik hemoglobin ">Mean Corpus. Medical concentration Hgb Center [Mass/volume] by Concentration Automated count (MCHC) </content>34.4 G/DL<content styleCode="Ital ics"> (32.0-37.0 G/DL)</content> Neutrophils 36-66 <content Saint [#/volume] in styleCode="Bold Malik Blood by ">Neutrophil Medical Automated count </content>57.1 Center %<content styleCode="Ital ics"> (36-66 %)</content> Platelets 130-400 <content Saint [#/volume] in styleCode="Bold Malik Blood by ">Platelet Medical Automated count Count Center </content>205 KCUMM<content styleCode="Ital ics"> (130-400 KCUMM)</content > UNK 1.6-7.3 <content Saint styleCode="Bold Malik ">Neutrophil Medical Count Center </content>3.72 KCUMM<content styleCode="Ital ics"> (1.6-7.3 KCUMM)</content > Platelet mean 8.0-11.0 <content Saint volume [Entitic styleCode="Bold Malik volume] in Blood ">Mean Platelet Medical by Automated Volume Center count </content>10.1 FL<content styleCode="Ital ics"> (8.0-11.0 FL)</content> Erythrocyte 11.5-14. <content Saint distribution 5 styleCode="Bold Malik width [Ratio] by ">Red Cell Medical Automated count Distribution Center Width </content>13.1 %<content styleCode="Ital ics"> (11.5-14.5 %)</content> Monocytes 3.0-10.0 <content Saint [#/volume] in styleCode="Bold Malik Blood by ">Monocyte Medical Automated count </content>8.0 Center %<content styleCode="Ital ics"> (3.0-10.0 %)</content> UNK 1.0-4.8 <content Saint styleCode="Bold Malik ">Lymphocyte Medical Count Center </content>2.21 KCUMM<content styleCode="Ital ics"> (1.0-4.8 KCUMM)</content > Eosinophils 0-5.0 <content Saint [#/volume] in styleCode="Bold Malik Blood by ">Eosinophil Medical Automated count </content>0.3 Center %<content styleCode="Ital ics"> (0-5.0 %)</content> Lymphocytes 24.0-44. <content Saint [#/volume] in 0 styleCode="Bold Malik Blood by ">Lymphocyte Medical Automated count </content>33.9 Center %<content styleCode="Ital ics"> (24.0-44.0 %)</content> UNK 0.2-0.9 <content Saint styleCode="Bold Malik ">Monocyte Medical Count Center </content>0.52 KCUMM<content styleCode="Ital ics"> (0.2-0.9 KCUMM)</content > UNK 0.0 <content Saint styleCode="Bold Malik ">Nucleated Red Medical Blood Cell Center Count </content>0.00 KCUMM<content styleCode="Ital ics"> (0.0 KCUMM)</content > UNK 0.0-0.6 <content Saint styleCode="Bold Malik ">Eosinophil Medical Count Center </content>0.02 KCUMM<content styleCode="Ital ics"> (0.0-0.6 KCUMM)</content > Basophils 0.0-1.0 <content Saint [#/volume] in styleCode="Bold [facility] Blood by ">Basophil Medical Automated count </content>0.2 Center %<content styleCode="Ital ics"> (0.0-1.0 %)</content> UNK 0.0-0.3 <content Saint styleCode="Bold Malik ">Basophil Medical Count Center </content>0.01 KCUMM<content styleCode="Ital ics"> (0.0-0.3 KCUMM)</content > UNK 0 <content Saint styleCode="Bold Malik ">Nucleated Red Medical Blood Cell Center </content>0.0 /100<content styleCode="Ital ics"> (0 /100)</content> UNK < 1 <content Saint styleCode="Bold Malik ">Immature Medical Granulocyte Center Ratio </content>0.5 %<content styleCode="Ital ics"> (< 1 %)</content> UNK 0-0.1 <content Saint styleCode="Bold Malik ">Immature Medical Granulocyte Center Count </content>0.03 KCUMM<content styleCode="Ital ics"> (0-0.1 KCUMM)</content > ID Date Data Source GFR(Creatinine).[id number] 08/24/2018 03:55:00 PM EST [facility] 0-0500 Name Value Range Interpretation Code Description Data Rocío rce(s) Supporting Document(s ) UNK > 60 <content [facility] styleCode="Bold"> Medical Cent er EGFR </content>101 GFR<content styleCode="Italic s"> (> 60 GFR)</content> ID Date Data Source Coagulation 08/24/2018 03:55:00 PM [facility] ical Center Rout.[id number] EST Name Value Range Interpretation Description Data Sup porting Code Source(s) Document(s ) UNK 9.0-13.0 <content Saint styleCode="Bold" Malik >Protime Medical </content>11.2 Center SEC<content styleCode="Itali cs"> (9.0-13.0 SEC)</content> INR in 0.80-1.2 <content Saint Platelet poor 0 styleCode="Bold" Malik plasma by >INR Medical Coagulation </content>0.99 Center assay #<content styleCode="Itali cs"> (0.80-1.20 #)</content> aPTT in 25.1-36. <content Saint Platelet poor 5 styleCode="Bold" Malik plasma by >Partial Medical Coagulation Thromboplastin Center assay Time </content>33.8 SEC<content styleCode="Itali cs"> (25.1-36.5 SEC)</content> ID Date Data Source [facility][id number] 08/24/2018 03:55:[address] [facility] -0500 Name Value Range Interpretation Description Data Sup porting Code Source(s) Document(s ) UNK >= 1.0 <content Saint Gan styleCode="Bold Medical ">AG Ratio Center </content>1.9 NM<content styleCode="Ital ics"> (>= 1.0 NM)</content> UNK 2.3-3.5 <content [facility] styleCode="Bold Medical ">Globulin Center </content>2.5 G/DL<content styleCode="Ital ics"> (2.3-3.5 G/DL)</content> Protein 6.3-8.2 <content [facility] [Mass/volum styleCode="Bold Medical e] in Serum ">Total Protein Center or Plasma </content>7.3 G/DL<content styleCode="Ital ics"> (6.3-8.2 G/DL)</content> ID Date Data Source [facility].[id number] 08/24/2018 03:55:[address] [facility] Name Value Range Interpretation Code Description Data Rocío rce(s) Supporting Document(s ) UNK NEGATIVE <content [facility] styleCode="Bold" Medical Cente r >Antibody Screen </content>NEGATI VE <content styleCode="Itali cs"> (NEGATIVE )</content> UNK <content [facility] styleCode="Bold" Medical Cente r >Blood Type </content>GROUP A (Reference Range: not available)
UNK <content [facility] styleCode="Bold" Medical Cente r >RH Type </content>POSITI VE (Reference Range: not available)
ID Date Data Source [facility].[id number] 08/24/2018 03:55:[address] [facility] Name Value Range Interpretation Description Data Sup porting Code Source(s) Document(s ) Creatinine 0.5-1.3 <content Saint [Mass/volume] in styleCode="Bold"> Mendel hs Serum or Plasma Creatinine Medical </content>0.9 Center MG/DL<content styleCode="Italic s"> (0.5-1.3 MG/DL)</content> UNK 9-20 <content Saint styleCode="Bold"> Malik BUN </content>13 Medical MG/DL<content Center styleCode="Italic s"> (9-20 MG/DL)</content> Potassium 3.5-5.3 <content Saint [Moles/volume] in styleCode="Bold"> [facility] Serum or Plasma Potassium Medical </content>4.0 Center MEQ/L<content styleCode="Italic s"> (3.5-5.3 MEQ/L)</content> Carbon dioxide, 22-30 <content Saint total styleCode="Bold"> Malik [Moles/volume] in Carbon Dioxide Medical Serum or Plasma </content>28 Center MEQ/L<content styleCode="Italic s"> (22-30 MEQ/L)</content> Chloride 98-107 <content Saint [Moles/volume] in styleCode="Bold"> Harinder phs Serum or Plasma Chloride Medical </content>105 Center MEQ/L<content styleCode="Italic s"> (98-107 MEQ/L)</content> Sodium 137-145 <content Saint [Moles/volume] in styleCode="Bold"> Harinder phs Serum or Plasma Sodium Medical </content>141 Center MEQ/L<content styleCode="Italic s"> (137-145 MEQ/L)</content> Glucose 74-106 <content Saint [Mass/volume] in styleCode="Bold"> Mendel hs Serum or Plasma Glucose Medical </content>92 Center MG/DL<content styleCode="Italic s"> (74-106 MG/DL)</content> Calcium 8.4-10. <content [facility] [Mass/volume] in 2 styleCode="Bold"> Mendel hs Serum or Plasma Calcium Medical </content>9.5 Center MG/DL<content styleCode="Italic s"> (8.4-10.2 MG/DL)</content> Aspartate 17-59 <content [facility] aminotransferase styleCode="Bold"> Mendel hs [Enzymatic Aspartate Medical activity/volume] Aminotransferase Center in Serum or Plasma (AST) </content>31 IU/L<content styleCode="Italic s"> (17-59 IU/L)</content> UNK > 60 <content Saint styleCode="Bold"> Malik EGFR Medical </content>101 Center GFR<content styleCode="Italic s"> (> 60 GFR)</content> Alanine 7-50 <content [facility] aminotransferase styleCode="Bold"> Mendel hs [Enzymatic Alanine Medical activity/volume] Aminotransferase Center in Serum or Plasma (ALT) </content>47 IU/L<content styleCode="Italic s"> (7-50 IU/L)</content> Alkaline 38-126 <content [facility] phosphatase styleCode="Bold"> Malik [Enzymatic Alkaline Medical activity/volume] Phosphatase (ALP) Cente r in Serum or Plasma </content>49 IU/L<content styleCode="Italic s"> (38-126 IU/L)</content> Bilirubin.total 0.2-1.3 <content [facility] [Mass/volume] in styleCode="Bold"> Mendel hs Serum or Plasma Bilirubin Total Medical </content>0.5 Center MG/DL<content styleCode="Italic s"> (0.2-1.3 MG/DL)</content> Albumin 3.5-5.0 <content [facility] [Mass/volume] in styleCode="Bold"> Mendel hs Serum or Plasma Albumin Medical </content>4.8 Center G/DL<content styleCode="Italic s"> (3.5-5.0 G/DL)</content> ID Date Data Source Liver Profile 08/24/2018 03:55:00 PM EST [facility] Name Value Range Interpretation Description Data Sup porting Code Source(s) Document(s ) Aspartate 17-59 <content [facility] aminotransferase styleCode="Bold"> Mendel hs [Enzymatic Aspartate Medical activity/volume] Aminotransferase Center in Serum or Plasma (AST) </content>31 IU/L<content styleCode="Italic s"> (17-59 IU/L)</content> Alanine 7-50 <content [facility] aminotransferase styleCode="Bold"> Mendel hs [Enzymatic Alanine Medical activity/volume] Aminotransferase Center in Serum or Plasma (ALT) </content>47 IU/L<content styleCode="Italic s"> (7-50 IU/L)</content> Alkaline 38-126 <content Saint phosphatase styleCode="Bold"> [facility] [Enzymatic Alkaline Medical activity/volume] Phosphatase (ALP) Cente r in Serum or Plasma </content>49 IU/L<content styleCode="Italic s"> (38-126 IU/L)</content> Bilirubin.total 0.2-1.3 <content Saint [Mass/volume] in styleCode="Bold"> Mendel hs Serum or Plasma Bilirubin Total Medical </content>0.5 Center MG/DL<content styleCode="Italic s"> (0.2-1.3 MG/DL)</content> Albumin 3.5-5.0 <content [facility] [Mass/volume] in styleCode="Bold"> Mendel hs Serum or Plasma Albumin Medical </content>4.8 Center G/DL<content styleCode="Italic s"> (3.5-5.0 G/DL)</content> ID Date Data Source HematologyRou 08/24/2018 03:55:00 PM EST [facility] Name Value Range Interpretation Description Data Sup porting Code Source(s) Document(s ) Hematocrit 41.0-53. <content Saint [Volume 0 styleCode="Bold Malik Fraction] of ">Hematocrit Medical Blood by </content>45.1 Center Automated count %<content styleCode="Ital ics"> (41.0-53.0 %)</content> Hemoglobin 13.5-17. <content Saint [Mass/volume] in 5 styleCode="Bold Malik Blood ">Hemoglobin Medical </content>15.5 Center G/DL<content styleCode="Ital ics"> (13.5-17.5 G/DL)</content> Erythrocytes 4.4-5.9 <content Saint [#/volume] in styleCode="Bold Malik Blood by ">Red Blood Medical Automated count Cell Count Center </content>4.84 MCUMM<content styleCode="Ital ics"> (4.4-5.9 MCUMM)</content > Leukocytes 4.4-11.0 <content Saint [#/volume] in styleCode="Bold Malik Blood by ">White Blood Medical Automated count Cell Count Center </content>6.51 KCUMM<content styleCode="Ital ics"> (4.4-11.0 KCUMM)</content > Erythrocyte mean 80.0-100 <content Saint corpuscular .0 styleCode="Bold Malik volume [Entitic ">Mean Medical volume] by Corpuscular Center Automated count Volume </content>93.2 FL<content styleCode="Ital ics"> (80.0-100.0 FL)</content> Erythrocyte mean 32.0-37. <content [facility] corpuscular 0 styleCode="Bold Malik hemoglobin ">Mean Corpus. Medical concentration Hgb Center [Mass/volume] by Concentration Automated count (MCHC) </content>34.4 G/DL<content styleCode="Ital ics"> (32.0-37.0 G/DL)</content> Erythrocyte mean 26.0-34. <content Saint corpuscular 0 styleCode="Bold Malik hemoglobin ">Mean Medical [Entitic mass] Corposcular Center by Automated Hemoglobin count </content>32.0 PG<content styleCode="Ital ics"> (26.0-34.0 PG)</content> Erythrocyte 11.5-14. <content [facility] distribution 5 styleCode="Bold Malik width [Ratio] by ">Red Cell Medical Automated count Distribution Center Width </content>13.1 %<content styleCode="Ital ics"> (11.5-14.5 %)</content> Platelet mean 8.0-11.0 <content Saint volume [Entitic styleCode="Bold Malik volume] in Blood ">Mean Platelet Medical by Automated Volume Center count </content>10.1 FL<content styleCode="Ital ics"> (8.0-11.0 FL)</content> UNK 1.6-7.3 <content Saint styleCode="Bold Malik ">Neutrophil Medical Count Center </content>3.72 KCUMM<content styleCode="Ital ics"> (1.6-7.3 KCUMM)</content > Neutrophils 36-66 <content Saint [#/volume] in styleCode="Bold Malik Blood by ">Neutrophil Medical Automated count </content>57.1 Center %<content styleCode="Ital ics"> (36-66 %)</content> Platelets 130-400 <content Saint [#/volume] in styleCode="Bold Malik Blood by ">Platelet Medical Automated count Count Center </content>205 KCUMM<content styleCode="Ital ics"> (130-400 KCUMM)</content > UNK 1.0-4.8 <content Saint styleCode="Bold Malik ">Lymphocyte Medical Count Center </content>2.21 KCUMM<content styleCode="Ital ics"> (1.0-4.8 KCUMM)</content > Lymphocytes 24.0-44. <content Saint [#/volume] in 0 styleCode="Bold Malik Blood by ">Lymphocyte Medical Automated count </content>33.9 Center %<content styleCode="Ital ics"> (24.0-44.0 %)</content> Monocytes 3.0-10.0 <content [facility] [#/volume] in styleCode="Bold Malik Blood by ">Monocyte Medical Automated count </content>8.0 Center %<content styleCode="Ital ics"> (3.0-10.0 %)</content> UNK 0.0-0.6 <content Saint styleCode="Bold Malik ">Eosinophil Medical Count Center </content>0.02 KCUMM<content styleCode="Ital ics"> (0.0-0.6 KCUMM)</content > UNK 0.2-0.9 <content Saint styleCode="Bold Malik ">Monocyte Medical Count Center </content>0.52 KCUMM<content styleCode="Ital ics"> (0.2-0.9 KCUMM)</content > Basophils 0.0-1.0 <content [facility] [#/volume] in styleCode="Bold Malik Blood by ">Basophil Medical Automated count </content>0.2 Center %<content styleCode="Ital ics"> (0.0-1.0 %)</content> Eosinophils 0-5.0 <content [facility] [#/volume] in styleCode="Bold Malik Blood by ">Eosinophil Medical Automated count </content>0.3 Center %<content styleCode="Ital ics"> (0-5.0 %)</content> UNK 0-0.1 <content [facility] styleCode="Bold Malik ">Immature Medical Granulocyte Center Count </content>0.03 KCUMM<content styleCode="Ital ics"> (0-0.1 KCUMM)</content > UNK 0.0 <content Saint styleCode="Bold Malik ">Nucleated Red Medical Blood Cell Center Count </content>0.00 KCUMM<content styleCode="Ital ics"> (0.0 KCUMM)</content > UNK 0 <content Saint styleCode="Bold Malik ">Nucleated Red Medical Blood Cell Center </content>0.0 /100<content styleCode="Ital ics"> (0 /100)</content> UNK 0.0-0.3 <content [facility] styleCode="Bold Malik ">Basophil Medical Count Center </content>0.01 KCUMM<content styleCode="Ital ics"> (0.0-0.3 KCUMM)</content > UNK < 1 <content Saint styleCode="Bold Malik ">Immature Medical Granulocyte Center Ratio </content>0.5 %<content styleCode="Ital ics"> (< 1 %)</content> ID Date Data Source GFR(Creatinine) 08/24/2018 03:55:00 PM [facility] Name Value Range Interpretation Code Description Data Rocío rce(s) Supporting Document(s ) UNK > 60 <content [facility] styleCode="Bold"> Medical Cent er EGFR </content>101 GFR<content styleCode="Italic s"> (> 60 GFR)</content> ID Date Data Source Coagulation Rout 08/24/2018 03:55:00 PM [facility] Name Value Range Interpretation Description Data Sup porting Code Source(s) Document(s ) UNK 9.0-13.0 <content [facility] styleCode="Bold" Malik >Protime Medical </content>11.2 Center SEC<content styleCode="Itali cs"> (9.0-13.0 SEC)</content> INR in 0.80-1.2 <content [facility] Platelet poor 0 styleCode="Bold" Malik plasma by >INR Medical Coagulation </content>0.99 Center assay #<content styleCode="Itali cs"> (0.80-1.20 #)</content> aPTT in 25.1-36. <content [facility] Platelet poor 5 styleCode="Bold" Malik plasma by >Partial Medical Coagulation Thromboplastin Center assay Time </content>33.8 SEC<content styleCode="Itali cs"> (25.1-36.5 SEC)</content> ID Date Data Source BloodBank 08/24/2018 03:55:00 PM [facility] Name Value Range Interpretation Code Description Data Rocío rce(s) Supporting Document(s ) UNK NEGATIVE <content [facility] styleCode="Bold" Medical Cente r >Antibody Screen </content>NEGATI VE <content styleCode="Itali cs"> (NEGATIVE )</content> UNK <content [facility] styleCode="Bold" Medical Cente r >Blood Type </content>GROUP A (Reference Range: not available)
UNK <content [facility] styleCode="Bold" Medical Cente r >RH Type </content>POSITI VE (Reference Range: not available)
ID Date Data Source [facility] 08/24/2018 03:55:00 PM EST [facility] Name Value Range Interpretation Description Data Sup porting Code Source(s) Document(s ) Sodium 137-145 <content [facility] [Moles/volume] in styleCode="Bold"> [facility] Serum or Plasma Sodium Medical </content>141 Center MEQ/L<content styleCode="Italic s"> (137-145 MEQ/L)</content> Potassium 3.5-5.3 <content [facility] [Moles/volume] in styleCode="Bold"> [facility] Serum or Plasma Potassium Medical </content>4.0 Center MEQ/L<content styleCode="Italic s"> (3.5-5.3 MEQ/L)</content> Chloride 98-107 <content [facility] [Moles/volume] in styleCode="Bold"> [facility] Serum or Plasma Chloride Medical </content>105 Center MEQ/L<content styleCode="Italic s"> (98-107 MEQ/L)</content> UNK 9-20 <content [facility] styleCode="Bold"> Malik BUN </content>13 Medical MG/DL<content Center styleCode="Italic s"> (9-20 MG/DL)</content> Carbon dioxide, 22-30 <content [facility] total styleCode="Bold"> Malik [Moles/volume] in Carbon Dioxide Medical Serum or Plasma </content>28 Center MEQ/L<content styleCode="Italic s"> (22-30 MEQ/L)</content> Calcium 8.4-10. <content [facility] [Mass/volume] in 2 styleCode="Bold"> Mendel hs Serum or Plasma Calcium Medical </content>9.5 Center MG/DL<content styleCode="Italic s"> (8.4-10.2 MG/DL)</content> Glucose 74-106 <content [facility] [Mass/volume] in styleCode="Bold"> Mendel hs Serum or Plasma Glucose Medical </content>92 Center MG/DL<content styleCode="Italic s"> (74-106 MG/DL)</content> UNK > 60 <content [facility] styleCode="Bold"> Malik EGFR Medical </content>101 Center GFR<content styleCode="Italic s"> (> 60 GFR)</content> Creatinine 0.5-1.3 <content [facility] [Mass/volume] in styleCode="Bold"> Mendel hs Serum or Plasma Creatinine Medical </content>0.9 Center MG/DL<content styleCode="Italic s"> (0.5-1.3 MG/DL)</content> Albumin 3.5-5.0 <content [facility] [Mass/volume] in styleCode="Bold"> Mendel hs Serum or Plasma Albumin Medical </content>4.8 Center G/DL<content styleCode="Italic s"> (3.5-5.0 G/DL)</content> Aspartate 17-59 <content [facility] aminotransferase styleCode="Bold"> Mendel hs [Enzymatic Aspartate Medical activity/volume] Aminotransferase Center in Serum or Plasma (AST) </content>31 IU/L<content styleCode="Italic s"> (17-59 IU/L)</content> Bilirubin.total 0.2-1.3 <content [facility] [Mass/volume] in styleCode="Bold"> Mendel hs Serum or Plasma Bilirubin Total Medical </content>0.5 Center MG/DL<content styleCode="Italic s"> (0.2-1.3 MG/DL)</content> Alanine 7-50 <content [facility] aminotransferase styleCode="Bold"> Mendel hs [Enzymatic Alanine Medical activity/volume] Aminotransferase Center in Serum or Plasma (ALT) </content>47 IU/L<content styleCode="Italic s"> (7-50 IU/L)</content> Alkaline 38-126 <content [facility] phosphatase styleCode="Bold"> Malik [Enzymatic Alkaline Medical activity/volume] Phosphatase (ALP) Cente r in Serum or Plasma </content>49 IU/L<content styleCode="Italic s"> (38-126 IU/L)</content> ID Date Data Source [id number] 03/31/2018 12:00:00 AM [facility] Name Value Range Interpretation Description Data Source(s ) Supporting Code Document(s ) Helicobacter Negative H. pylori [place] pylori Ag Stool Ag, EIA ([place] [Presence] in Neighborhood Stool by [facility]) Immunoassay ID Date Data Source [id number] 03/27/2018 11:42:00 AM EDT [place] ([facility]) Name Value Range Interpretation Description Data Source(s ) Supporting Code Document(s ) Hepatitis B Negative Hep B Core [place] virus core Ab Ab, Tot ([place] [Presence] in Neighborhood Serum or [facility]) Plasma by Immunoassay ID Date Data Source [id number] 03/27/2018 11:42:00 AM EDT [facility] ([facility]) Name Value Range Interpretation Description Data Source(s ) Supporting Code Document(s ) Hepatitis B Negative HBsAg Screen [place] virus surface ([place] Ag [Presence] Neighborhood in Serum or [facility]) Plasma by Immunoassay ID Date Data Source [id number] 03/27/2018 11:42:00 AM EDT [place] ([facility]) Name Value Range Interpretation Description Data Source(s ) Supporting Code Document(s ) Herpes simplex <0.91 HSV 2 IgG, [facility]HA virus 2 IgG Ab index Type Spec ([place] [Units/volume] Neighborhood in Serum by [facility]) Immunoassay Note: Negative <0.91 Equ ivocal 0.91 - 1.09 Positive >1.0 9 Note: Negative indicates no antibodies detected to HS V-2. Equivocal may suggest early infection. If clinically appropriate , retest at later date. Positive indicates antibodies detected to HSV-2 . ID Date Data Source [id number] 03/27/2018 11:42:00 AM [facility] Name Value Range Interpretation Description Data Source(s ) Supporting Code Document(s ) Hepatitis C 0.1 Hep C Virus [facility] virus Ab s/co_rat Ab ([place] Signal/Cutoff io [facility] in Serum or Health Center) Plasma by Immunoassay Note: Negative: < 0.8 Indeterm inate: 0.8 - 0.9 Positive: > 0.9 The CDC recommends that a positive HCV antibody result be followed up with a HCV Nucleic Acid Amplification test (43224 3). ID Date Data Source [id number] 03/27/2018 11:42:00 AM EDT [facility] ([facility]) Name Value Range Interpretation Description Data Source(s ) Supporting Code Document(s ) HIV 1+2 Non HIV Screen [facility] Ab+HIV1 p24 Reactive 4th ([place] Ag [Presence] Generation [facility] in Serum or [facility]) Plasma by Immunoassay ID Date Data Source [id number] 03/27/2018 11:42:00 AM EDT [facility] ([facility]) Name Value Range Interpretation Description Data Source(s ) Supporting Code Document(s ) Hepatitis B Non Hep B Surface [facility] virus Reactive Ab, Qual ([place] surface Ab [facility] [Presence] [facility]) in Serum Note: Non R eactive: Inconsistent with immunity, less th an 10 mIU/mL Reactive: Consistent with immunity, greater than 9.9 mIU/mL ID Date Data Source [id number] 03/27/2018 11:42:00 AM EDT [facility] ([facility]) Name Value Range Interpretation Description Data Source(s ) Supporting Code Document(s ) Thyrotropin 1.510 TSH [place] ([facility] [Units/volume] uIU/mL [place] in Serum or Neighborhood Plasma by Health Center) Detection limit <= 0.05 mIU/L ID Date Data Source [id number] 03/27/2018 11:42:00 AM EDT [facility] ([facility]) Name Value Range Interpretation Description Data Source(s ) Supporting Code Document(s ) Hemoglobin 5.3 % Hemoglobin A1c [place] (Moun t A1c/Hemoglobi [place] n.total in [facility] Blood [facility]) Note: Pre-diabetes: 5.7 - 6.4 Diabetes: >6.4 Glycemic control for adults with diabetes: <7.0 ID Date Data Source [id number] 03/27/2018 11:42:00 AM EDT [facility] ([facility]) Name Value Range Interpretation Description Data Source(s ) Supporting Code Document(s ) Chlamydia Negative Chlamydia [facility] trachomatis trachomatis, ([place] rRNA [Presence] KIMBERLY Neighborhood in [facility]) specimen by Probe and target amplification method Neisseria Negative Neisseria [facility] gonorrhoeae gonorrhoeae, ([place] rRNA [Presence] KIMBERLY [facility] in [facility]) specimen by Probe and target amplification method ID Date Data Source [id number] 03/27/2018 11:42:00 AM EDT [facility] ([facility]) Name Value Range Interpretation Description Data Source(s ) Supporting Code Document(s ) Triglyceride 150 Above high Triglycerides [place] [Mass/volume] mg/dL normal ([place] in Serum or [facility] Plasma [facility]) Cholesterol in 43 HDL Cholesterol [place] HDL mg/dL ([place] [Mass/volume] [facility] in Serum or [facility]) Plasma Cholesterol 204 Above high Cholesterol, [place] [Mass/volume] mg/dL normal Total ([place] in Serum or [facility]) Laboratory N/A Comment: [place] comment [Text] ([place] in Report [facility]) Cholesterol in 131 Above high LDL Cholesterol [facility] LDL mg/dL normal Calc ([place] [Mass/volume] [facility] in Serum or Health [place]) Plasma by calculation Cholesterol in 30 VLDL [place] VLDL mg/dL Cholesterol Sanaz ([place] [Mass/volume] [facility] in Serum or [facility]) Plasma by calculation Cholesterol in 3.0 LDL/HDL Ratio [facility] LDL/Cholestero ratio ([place] l in HDL [Mass Neighborhood Ratio] in [facility]) Serum or Plasma Note: LDL/HDL Ratio Men Women 1/2 Avg.Risk 1.0 1.5 Avg.Risk 3.6 3.2 2X Avg.Risk 6.2 5.0 3X Avg.Risk 8.0 6.1 ID Date Data Source [id number] 03/27/2018 11:42:00 AM EDT [place] ([facility]) Name Value Range Interpretation Description Data Sup porting Code Source(s) Document(s ) Calcium 9.2 Calcium [facility] [Mass/volume] in mg/dL ([place] Serum or Plasma [facility]) Albumin 4.6 Albumin [facility] [Mass/volume] in g/dL ([facility] or [facility]) Glucose 83 Glucose [facility]HA [Mass/volume] in mg/dL ([facility] or [facility]) Urea nitrogen 10 BUN [facility] [Mass/volume] in mg/dL ([facility]) Protein 7.0 Protein, [facility]HA [Mass/volume] in g/dL Total ([facility]) Bilirubin.total 0.6 Bilirubin, [facility] [Mass/volume] in mg/dL Total ([facility] or [facility]) Potassium 3.8 Potassium [facility] [Moles/volume] in mmol/L ([facility] or [facility]) Aspartate 24 IU/L AST (SGOT) [facility]IBHA aminotransferase ([place] [Enzymatic [facility] activity/volume] Health in Serum or [facility]) Alkaline 57 IU/L Alkaline [place] phosphatase Phosphatase ([place] [Enzymatic [facility] activity/volume] Health in Serum or [facility]) Sodium 139 Sodium VIBHA [Moles/volume] in mmol/L ([facility]) Chloride 99 Chloride [facility] [Moles/volume] in mmol/L ([facility] or [facility]) Carbon dioxide, 23 Carbon [facility]HA total mmol/L Dioxide, ([place] [Moles/volume] in Total [facility] or [facility]) Alanine 31 IU/L ALT (SGPT) VIBHA aminotransferase ([place] [Enzymatic Neighborhood activity/volume] Health in Serum or [facility]) Creatinine 0.77 Creatinine [facility]HA [Mass/volume] in mg/dL ([facility]) eGFR If NonAfricn 118 eGFR If VIBHA Am mL/min/ NonAfricn Am ([address]) Globulin 2.4 Globulin, [facility] [Mass/volume] in g/dL Total ([facility] by [facility]) Albumin/Globulin 1.9 A/G Ratio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
[2020-05-13] MEDS ORDERED: FAMOTIDINE 20 MG TABLET PO ONE (23:18)
[2020-05-13] MEDS ORDERED: ACETAMINOPHEN 325 MG TABLET (FP) PO ONE (23:18)
[2020-05-13] MEDS ORDERED: MAG HYDROX/AL HYDROX/SIMETH 30 ML UNIT-DOSE CUP PO ONE (23:18)
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
[2020-05-13] MEDS ORDERED: FAMOTIDINE 20 MG TABLET ONE (23:53)
[2020-05-13] MEDS ORDERED: ACETAMINOPHEN 325 MG TABLET (FP) ONE (23:53)
[2020-05-13] MEDS ORDERED: MAG HYDROX/AL HYDROX/SIMETH 30 ML UNIT-DOSE CUP ONE (23:54)
[2020-05-14] MEDS ORDERED: SIMETHICONE 80 MG TAB.CHEW (FP) PO ONE (01:30)
[2020-05-14] MEDS ORDERED: ACETAMINOPHEN 325 MG TABLET (FP) PO ONE (01:38)
[2020-05-14 02:25] LABS: PH,URINE 5.5 (5.0-8.0); URINE APPEARANCE CLEAR; URINE BILIRUBIN NEGATIVE (NEGATIVE); URINE COLOR YELLOW; URINE GLUCOSE (UA) NEGATIVE (NEGATIVE); URINE KETONE NEGATIVE (NEGATIVE); URINE LEUK ESTERASE NEGATIVE (NEGATIVE); URINE NITRITE NEGATIVE (NEGATIVE); URINE PROTEIN NEGATIVE (NEGATIVE); URINE UROBILINOGEN 0.2 mg/dL (0.2-1.0)
[2020-05-14 03:35] VITALS: BP 124/80; PULSE 68
== END 2020-05-14 03:30 | disposition home or self-care (01) ==
LOC: JER 22:34
DX: K59.00 Constipation, unspecified (principal); B35.4 Tinea corporis
CPT/HCPCS: 81003; 99283-25

== ENCOUNTER 2020-08-07 18:53 | Emergency (ER) | payer OTHER ==
[2020-08-07 19:28] VITALS: BP 138/101; PULSE 88; TEMP 98.3; BMI 29.5
[2020-08-07] MEDS ORDERED: IBUPROFEN 600 MG TABLET (FP) PO ONE (19:51)
[2020-08-07] MEDS ORDERED: KETOROLAC TROMETHAMINE 30 MG/1 ML VIAL IM ONE (20:12)
== END 2020-08-07 21:15 | disposition home or self-care (01) ==
LOC: JERFT 18:53
PROC: 3E0233Z Introduction of Anti-inflammatory into Muscle, Percutaneous Approach (ICD-10-PCS; principal; 2020-08-07)
DX: M79.602 Pain in left arm (principal); M54.6 Pain in thoracic spine
CPT/HCPCS: 73060-TC-LT-FY; 99284-25

== ENCOUNTER 2020-11-18 16:49 | Emergency (ER) | payer OTHER ==
[2020-11-18 16:57] VITALS: BP 156/100; PULSE 88; TEMP 98.7; BMI 40.3
[2020-11-18] MEDS ORDERED: KETOROLAC TROMETHAMINE 30 MG/1 ML VIAL IM ONE ×2 (17:00→21:38)
[2020-11-18] MEDS ORDERED: KETOROLAC TROMETHAMINE 30 MG/1 ML VIAL ONE ×2 (17:09→21:52)
[2020-11-18] MEDS ORDERED: ACETAMINOPHEN 500 MG TABLET (FP) PO ONE (17:41)
[2020-11-18] MEDS ORDERED: ACETAMINOPHEN 500 MG TABLET (FP) ONE (17:42)
== END 2020-11-18 21:56 | disposition home or self-care (01) ==
LOC: JER 16:49
PROC: 2W3DX1Z Immobilization of Left Lower Arm using Splint (ICD-10-PCS; principal; 2020-11-18)
PROC: 3E023GC Introduction of Other Therapeutic Substance into Muscle, Percutaneous Approach (ICD-10-PCS; principal; 2020-11-18)
DX: S52.692A Other fracture of lower end of left ulna, initial encounter for closed fracture (principal); S09.90XA Unspecified injury of head, initial encounter; Y08.02XA Assault by strike by baseball bat, initial encounter
CPT/HCPCS: 70450-TC; 72125-TC; 73060-TC-LT-FY; 73070-TC-LT-FY; 73090-TC-LT-FY; 73110-TC-LT-FY; 73110-TC-RT-FY; 73130-TC-LT-FY; 73130-TC-RT-FY; 99285-25

== ENCOUNTER 2020-11-30 15:41 | Emergency (ER) | payer OTHER ==
[2020-11-30 15:46] VITALS: BP 129/85; PULSE 94; TEMP 98.5; BMI 56.9
== END 2020-11-30 16:45 | disposition home or self-care (01) ==
LOC: JERFT 15:41 → JER 15:41 → JERFT 16:45
DX: M79.602 Pain in left arm (principal)
CPT/HCPCS: 99283-25

== ENCOUNTER 2021-10-14 13:08 | Emergency (ER) | payer OTHER ==
[2021-10-14 13:23] VITALS: BP 124/87; PULSE 89; TEMP 98.6; BMI 31.6
== END 2021-10-14 15:41 | disposition home or self-care (01) ==
LOC: JERFT 13:08
DX: M79.641 Pain in right hand (principal)
CPT/HCPCS: 73070-TC-RT-FY; 73130-TC-RT-FY; 99284-25

== ENCOUNTER 2022-06-01 19:44 | Emergency (ER) | payer OTHER ==
[2022-06-01 19:58] VITALS: BMI 29.7
[2022-06-01] MEDS ORDERED: SODIUM CHLORIDE 0.9% 500 ML INFUS.BAG IV ONE (20:48)
[2022-06-01] MEDS ORDERED: ACETAMINOPHEN 1000 MG/100 ML BAG IVPB ONE (20:48)
[2022-06-01] MEDS ORDERED: ACETAMINOPHEN INJECTION 100 ML IVPB ONE (21:14)
[2022-06-01 21:47] LABS: BASO % 0.1 % (0-2.0); HEMOGLOBIN 16.2 GM/dL (11.7-16.9); LYMPH % 14.5 % (8-40); MCH 32.7 pg (25.7-33.7); MCHC 34.4 g/dl (32.0-35.9); MEAN CELL VOLUME 95.1 fl (80-96); MEAN PLT VOLUME 8.2 fl (7.5-11.1); MONO % 5.9 % (3.8-10.2); NEUT % 79.5 % (42.8-82.8); PLATELET COUNT 230 10^3/uL (134-434); RBC 4.95 M/mm3 (4.00-5.60); RDW 13.8 % (11.9-15.9); WHITE BLOOD COUNT 12.2 K/mm3 (4.0-10.0)
[2022-06-01 21:56] LABS: INR 1.09 (0.83-1.09); PROTHROMBIN TIME (PATIENT) 12.5 SEC (9.7-13.0)
[2022-06-01 22:08] LABS: CALCIUM 9.1 mg/dL (8.5-10.1)
[2022-06-01 22:09] LABS: ALBUMIN 4.3 g/dl (3.4-5.0); BLOOD UREA NITROGEN 11.8 mg/dL (7-18)
[2022-06-01 22:14] LABS: TOT PROT 7.6 g/dl (6.4-8.2)
[2022-06-01 22:22] LABS: BILIRUBIN,TOTAL 0.6 mg/dL (0.2-1)
[2022-06-01] MEDS ORDERED: KETOROLAC TROMETHAMINE 30 MG/1 ML VIAL IVPUSH ONE (23:17)
[2022-06-01] MEDS ORDERED: KETOROLAC TROMETHAMINE 30 MG/1 ML VIAL ONE (23:18)
[2022-06-01 23:38] VITALS: RESP 18
[2022-06-02 06:20] VITALS: BP 103/54; PULSE 77; TEMP 98.5
== END 2022-06-02 06:20 | disposition short-term general hospital (02) ==
LOC: JER 19:44
PROC: 3E033GC Introduction of Other Therapeutic Substance into Peripheral Vein, Percutaneous Approach (ICD-10-PCS; principal; 2022-06-01)
DX: R51.9 Headache, unspecified (principal); H53.8 Other visual disturbances; R10.84 Generalized abdominal pain; Y04.8XXA Assault by other bodily force, initial encounter
CPT/HCPCS: 36415; 70450-TC; 74176-TC; 80053; 85025; 85610; 86850; 86900; 86901; 99285-25

== ENCOUNTER 2023-07-17 03:42 | Emergency (ER) | payer OTHER ==
[2023-07-17 03:50] VITALS: RESP 18
[2023-07-17 04:00] VITALS: BMI 26.4
[2023-07-17] MEDS ORDERED: IBUPROFEN 600 MG TABLET (FP) PO ONE ×2 (06:04→06:08)
[2023-07-17] MEDS ORDERED: ACETAMINOPHEN 500 MG TABLET (FP) PO ONE (06:04)
[2023-07-17] MEDS ORDERED: LIDOCAINE 5% TOPICAL PATCH TP ONE ×2 (06:05)
[2023-07-17] MEDS ORDERED: LIDOCAINE 4% PATCH TP ONE (06:08)
[2023-07-17] MEDS ORDERED: ACETAMINOPHEN 500 MG TABLET (FP) ONE (06:08)
[2023-07-17 07:13] VITALS: TEMP 98.4
[2023-07-17 10:45] VITALS: BP 129/80; PULSE 61
[2023-07-17] MEDS ORDERED: LIDOCAINE PATCH REMOVAL MC SCH ×2 (22:00)
== END 2023-07-17 11:12 | disposition home or self-care (01) ==
LOC: JER 03:42
DX: M25.511 Pain in right shoulder (principal); M25.561 Pain in right knee; R68.84 Jaw pain; R51.9 Headache, unspecified; Y04.0XXA Assault by unarmed brawl or fight, initial encounter
CPT/HCPCS: 70450-TC; 70486-TC; 73030-TC-RT-FY; 73090-TC-RT-FY; 73560-TC-RT-FY; 99284-25

== ENCOUNTER 2024-03-19 03:31 | Emergency (ER) | payer OTHER ==
[2024-03-19 03:37] VITALS: BP 134/89; PULSE 75; RESP 18; TEMP 98.6; BMI 34.2
[2024-03-19] MEDS ORDERED: ACETAMINOPHEN 325 MG TABLET (FP) ONE (04:20)
[2024-03-19] MEDS ORDERED: LIDOCAINE 4% PATCH TP ONE (04:21)
[2024-03-19] MEDS ORDERED: KETOROLAC TROMETHAMINE 15 MG/ML VIAL ONE (04:21)
[2024-03-19] MEDS: ACETAMINOPHEN 500 MG TABLET (FP) PO ONE (04:25)
[2024-03-19] MEDS: LIDOCAINE 5% TOPICAL PATCH TP ONE (04:25)
[2024-03-19] MEDS: KETOROLAC TROMETHAMINE 15 MG/ML VIAL IM ONE (04:26)
== END 2024-03-19 04:40 | disposition home or self-care (01) ==
LOC: JER 03:31
PROC: 3E0233Z Introduction of Anti-inflammatory into Muscle, Percutaneous Approach (ICD-10-PCS; principal; 2024-03-19)
DX: M79.601 Pain in right arm (principal); R20.0 Anesthesia of skin; R20.2 Paresthesia of skin; W01.0XXA Fall on same level from slipping, tripping and stumbling without subsequent striking against object, initial encounter
CPT/HCPCS: 99284-25

== ENCOUNTER 2024-06-15 11:31 | Emergency (ER) | payer SELFPAY ==
[2024-06-15 11:39] VITALS: BP 136/85; PULSE 96; RESP 18; TEMP 97.8; BMI 33.7
[2024-06-15] MEDS ORDERED: ACETAMINOPHEN 500 MG TABLET (FP) ONE (12:20)
[2024-06-15] MEDS: ACETAMINOPHEN 500 MG TABLET (FP) PO ONE (12:23)
[2024-06-15 21:35] LABS: HIV INTERPRETATION NEGATIVE (NEGATIVE)
== END 2024-06-15 16:03 | disposition home or self-care (01) ==
LOC: JERFT 11:31
DX: S61.214A Laceration without foreign body of right ring finger without damage to nail, initial encounter (principal); S61.212A Laceration without foreign body of right middle finger without damage to nail, initial encounter; W25.XXXA Contact with sharp glass, initial encounter
CPT/HCPCS: 36415; 73140-TC-RT-FY; 86803; 87389; 99284-25